=== PATIENT | male | born 1940 | race Caucasian/White ===

== ENCOUNTER 2018-01-17 08:23 | Outpatient (CLI) | payer MEDICARE, OTHER, SELFPAY ==
[2018-01-18 09:54] LABS: PSA, Diagnostic 3.8 ng/ml (0-6.5)
== END 2018-01-17 08:43 ==
PROVIDERS: PCP Family Medicine; Visit Provider Family Medicine
DX: N40.1 Benign prostatic hyperplasia with lower urinary tract symptoms (principal)
CPT/HCPCS: 36415; 84153

== ENCOUNTER 2018-06-17 15:28 | Outpatient (REF) | payer MEDICARE, OTHER, SELFPAY ==
[2018-06-17 22:08] LABS: HCT 40.8 % (40.0-50.0); HGB 14.2 g/dL (13.5-17.5); Mean Corp. HGB Concentration 34.8 g/dL (32.0-36.0); Mean Corpuscular Hemoglobin 32.2 pg (27.0-33.0); Mean Corpuscular Volume 92.5 fL (80-95); Mean Platelet Volume 10.5 fL (8.0-11.0); Platelet Count 200 x1000/uL (130-400); RBC 4.41 m/cumm (4.50-6.00); RBC Distribution Width 12.5 % (11.8-14.1); White Blood Cell Count 5.27 k/cumm (4.4-10.8)
[2018-06-17 22:12] LABS: ALT 40 U/L (12-78); AST 25 U/L (15-37); Alkaline Phosphatase 78 U/L (46-116); Anion Gap 8.7 mmol/L (3-11); BUN 23 mg/dL (7-18); Bilirubin, Total 0.8 mg/dL (0.2-1.0); CO2 29.3 mmol/L (21.0-32.0); CREATININE 0.95 mg/dL (0.70-1.30); Calcium 9.1 mg/dL (8.5-10.1); Chloride 99 mmol/L (98-107); Cholesterol 135 mg/dL (50-200); Glucose 107 mg/dL (70-100); HDL Cholesterol 48 mg/dL (40-60); LDL CHOLESTEROL 74 mg/dL (<100); Potassium 3.9 mmol/L (3.5-5.1); Sodium 137 mmol/L (136-145); Total Protein 6.6 g/dL (6.4-8.2); Triglyceride 99 mg/dL (30-150)
== END 2018-06-17 15:48 ==
LOC: NCHCN 15:28
PROVIDERS: PCP Family Medicine; Visit Provider Specialist/Technologist Athletic Trainer
DX: E11.9 Type 2 diabetes mellitus without complications (principal); I10 Essential (primary) hypertension; E78.5 Hyperlipidemia, unspecified
CPT/HCPCS: 80053; 80061; 83721; 85027

== ENCOUNTER 2020-08-23 18:26 | Outpatient (REF) | payer MEDICARE, OTHER, SELFPAY ==
[2020-08-23 18:47] LABS: HCT 41.7 % (40.0-50.0); HGB 14.7 g/dL (13.5-17.5); MCH 32.2 pg (27.0-33.0); MCHC 35.3 % (32.0-36.0); MCV 91.2 fL (80-95); Platelet Count 223 10^3/uL (130-400); RBC 4.57 10^6/uL (4.36-5.78); RDW 12.6 % (11.8-14.1); RDW-SD 41.6 fL; WBC 6.42 10^3/uL (4.4-10.8)
[2020-08-23 19:04] LABS: ALT 39 U/L (16-63); AST 28 U/L (15-37); Albumin 4.1 g/dL (3.4-5.0); Alkaline Phosphatase 96 U/L (46-116); Anion Gap 9.6 mmol/L (3-11); BUN 26 mg/dL (7-18); Bilirubin, Total 1.3 mg/dL (0.2-1.0); CO2 28.4 mmol/L (21.0-32.0); CREATININE 0.9 mg/dL (0.70-1.30); Calcium 8.9 mg/dL (8.5-10.1); Chloride 97 mmol/L (98-107); Glucose 99 mg/dL (74-106); Potassium 3.5 mmol/L (3.5-5.1); Sodium 135 mmol/L (136-145); Total Protein 6.7 g/dL (6.4-8.2)
[2020-08-23 19:05] LABS: Hemoglobin A1C 6.3 % (<5.7)
== END 2020-08-23 18:27 | disposition home or self-care (01) ==
LOC: NCHCN 18:26
PROVIDERS: PCP Family Medicine; Visit Provider Nurse Practitioner Family
DX: I10 Essential (primary) hypertension (principal); E78.5 Hyperlipidemia, unspecified; R73.09 Other abnormal glucose
CPT/HCPCS: 80053; 85027; 83036

== ENCOUNTER 2021-08-25 10:24 | Outpatient (REF) | payer MEDICARE, OTHER, SELFPAY ==
[2021-08-25 15:20] LABS: Hemoglobin A1C 6.2 % (<5.7)
[2021-08-25 15:22] LABS: Anion Gap 7.3 mmol/L (3-11); BUN 26 mg/dL (7-18); CO2 30.7 mmol/L (21.0-32.0); CREATININE 0.9 mg/dL (0.70-1.30); Calcium 8.7 mg/dL (8.5-10.1); Chloride 96 mmol/L (98-107); Glucose 120 mg/dL (74-106); Potassium 4.1 mmol/L (3.5-5.1); Sodium 134 mmol/L (136-145)
== END 2021-08-25 10:25 | disposition home or self-care (01) ==
LOC: NCHCN 10:24
PROVIDERS: PCP Family Medicine; Visit Provider Nurse Practitioner Family
DX: R73.03 Prediabetes (principal); I10 Essential (primary) hypertension
CPT/HCPCS: 80048; 83036

== ENCOUNTER 2022-08-28 12:31 | Outpatient (REF) | payer MEDICARE, OTHER, SELFPAY ==
[2022-08-28 18:30] LABS: ALT 32 U/L (16-63); AST 24 U/L (15-37); Albumin 4.1 g/dL (3.4-5.0); Alkaline Phosphatase 86 U/L (46-116); Anion Gap 11.1 mmol/L (3-11); BUN 25 mg/dL (7-18); Bilirubin, Total 0.7 mg/dL (0.2-1.0); CO2 26.9 mmol/L (21.0-32.0); CREATININE 0.9 mg/dL (0.70-1.30); Calcium 9.6 mg/dL (8.5-10.1); Chloride 95 mmol/L (98-107); Estimated GFR 86.34 (mL/min/1.73m2); Glucose 110 mg/dL (74-106); Potassium 3.8 mmol/L (3.5-5.1); Sodium 133 mmol/L (136-145); Total Protein 6.7 g/dL (6.4-8.2)
[2022-08-28 19:09] LABS: Hemoglobin A1C 5.9 % (<5.7)
[2022-08-29 19:50] LABS: PSA, Screening 8.5 ng/mL (<=6.5)
== END 2022-08-28 12:32 | disposition home or self-care (01) ==
LOC: NCHCN 12:31
PROVIDERS: PCP Family Medicine; Visit Provider Nurse Practitioner Family
DX: R97.20 Elevated prostate specific antigen [PSA] (principal); R73.03 Prediabetes; Z12.5 Encounter for screening for malignant neoplasm of prostate
CPT/HCPCS: 80053; 84153; 83036

== ENCOUNTER 2022-09-12 09:43 | Outpatient (REF) | payer MEDICARE, OTHER, SELFPAY ==
[2022-09-12 20:00] LABS: Anion Gap 5.5 mmol/L (3-11); BUN 25 mg/dL (7-18); CO2 30.5 mmol/L (21.0-32.0); CREATININE 0.9 mg/dL (0.70-1.30); Calcium 8.7 mg/dL (8.5-10.1); Chloride 102 mmol/L (98-107); Estimated GFR 86.34 (mL/min/1.73m2); Glucose 120 mg/dL (74-106); Potassium 4.8 mmol/L (3.5-5.1); Sodium 138 mmol/L (136-145)
== END 2022-09-12 09:44 | disposition home or self-care (01) ==
LOC: NCHCN 09:43
PROVIDERS: PCP Family Medicine; Visit Provider Nurse Practitioner Family
DX: E87.1 Hypo-osmolality and hyponatremia (principal)
CPT/HCPCS: 80048

== ENCOUNTER 2023-09-03 09:41 | Outpatient (REF) | payer MEDICARE, OTHER, SELFPAY ==
[2023-09-03 16:10] LABS: Hemoglobin A1C 5.9 % (<5.7)
[2023-09-03 16:35] LABS: ALT 30 U/L (16-63); AST 21 U/L (15-37); Albumin 3.9 g/dL (3.4-5.0); Alkaline Phosphatase 84 U/L (46-116); Anion Gap 7.5 mmol/L (3-11); BUN 21 mg/dL (7-18); Bilirubin, Total 0.4 mg/dL (0.2-1.0); CO2 27.5 mmol/L (21.0-32.0); CREATININE 0.9 mg/dL (0.70-1.30); Calcium 8.7 mg/dL (8.5-10.1); Chloride 103 mmol/L (98-107); Glucose 115 mg/dL (74-106); Magnesium 2.2 mg/dL (1.8-2.4); Potassium 5.2 mmol/L (3.5-5.1); Sodium 138 mmol/L (136-145); Total Protein 6.9 g/dL (6.4-8.2)
[2023-09-03 23:15] LABS: PSA, Diagnostic 15.2 ng/mL (<=6.5)
== END 2023-09-03 09:42 | disposition home or self-care (01) ==
LOC: NCHCN 09:41
PROVIDERS: PCP Family Medicine; Visit Provider Nurse Practitioner Family
DX: Z00.00 Encounter for general adult medical examination without abnormal findings (principal); R97.20 Elevated prostate specific antigen [PSA]; I10 Essential (primary) hypertension; R73.03 Prediabetes
CPT/HCPCS: 80053; 82306; 83036; 83735; 84153

== ENCOUNTER 2023-10-05 14:51 | Outpatient (REF) | payer MEDICARE, OTHER, SELFPAY ==
--- OUTSIDE RECORDS SUMMARY | 2023-10-05 14:57 | XMS_ITS | Encounter Summary ---
Author Organization [facility] Address [address] [place] [address] Care Team Providers Care Energy And Sustainability Manager Name Role Phone Unavailable Primary Care Provider Unavailabl e Encounter Details Date Type Department Care Team (Latest Contact Info) Description 06/13/2000 18:26 EST Hospital Encounter [facility] Emergency Department - [facility] [address] [place] [address] Emergency, Default, MD Discharge Disposition: Home or Self Care Social History Tobacco Use Types Packs/Day Years Used Date Smoking Tobacco: Never Assessed Sex and Gender Information Value Date Recorded Sex Assigned at Not on file Gender Identity Not on file Sexual Orientation Not on file documented as of this encounter Discharge Disposition Disposition Code Departure Means Destination Home or Self Care documented in this encounter Plan of Treatment Not on file documented as of this encounter Visit Diagnoses Not on filedocumented in this encounter
--- OUTSIDE RECORDS SUMMARY | 2023-10-05 14:57 | XMS_ITS | Clinical Summary ---
Author Organization [facility] Address [address] [place] [address] Care Team Providers Care Agricultural Loan Officer Name Role Phone None, Provider Primary Care Provider Unavailabl e Allergies No known active allergies Medications Medication Sig Dispensed Refills Start Date End Date Status aspirin 325 mg tablet Take 325 mg by mouth daily. Active lisinopril (PRINIVIL, ZESTRIL) 20 mg tablet Take 20 mg by mouth daily. Active nitroGLYCERIN (NITROSTAT) 0.[address] 0.4 mg under the tongue every 5 minutes as needed. Active hydrochlorothiazide (MICROZIDE) 12.5 mg capsule Take 12.5 mg by mouth daily. Active atorvastatin (LIPITOR) 80 mg tablet Take 1 Tab by mouth daily. 90 Tab 4 12/14/2010 Active ezetimibe (ZETIA) 10 mg tablet Take 1 Tab by mouth daily. 90 Tab 4 12/14/2010 Active atenolol (TENORMIN) 25 mg tablet Take 1 Tab by mouth daily. 90 Tab 4 12/14/2010 Active chlorthalidone (HYGROTON) 25 mg tablet Take 25 mg by mouth daily. 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 Hyperlipidemia 12/14/2009 Hypertensive disorder 12/14/2009 Encounters Date Type Department Care Team Description 09/03/2023 Lab Requisition [facility] Pathology & Laboratory Medicine - [facility] [address] [place] [address] Outr Resulting Lab, Provider from Last 3 Months Surgical History Surgery Date Site/Laterality Comments VASECTOMY TONSILLECTOMY AND ADENOIDECTOMY Family History Medical History Relation Comments Heart Disease Mother CABG Relation Status Comments Mother Social History Tobacco Use Types Packs/Day Years Used Date Smoking Tobacco: Never Smokeless Tobacco: Never Alcohol Use Standard Drinks/Week Comments Yes 4.5 (1 standard drink = 0.6 oz p ure alcohol) Interpersonal Safety Answer Date Record ed Physically Hurt Never 10/19/2019 Verbally Threaten Not on file 10/19/2019 Sex and Gender Information Value Date Recorded Sex Assigned at Not on file Gender Identity Not on file Sexual Orientation Not on file Obstetrics History Last Filed Vital Signs Vital Sign Reading Time Taken Comments Blood Pressure 124/68 08/28/2012 1323 EDT Pulse 56 08/28/2012 1323 EDT Temperature - - Respiratory Rate - - Oxygen Saturation - - Inhaled Oxygen Concentration - - Weight 68.5 kg (151 lb) 08/28/2012 1323 EDT Height 170.2 cm (5' 7) 08/28/2012 1323 EDT Body Mass Index 23.65 08/28/2012 1323 EDT Plan of Treatment Health Maintenance Due Date Last Done Comments Social Determinants Of Health (SDOH) 1942 Lipid Profile Screening (Cholesterol) 1945 Depression Screening 1954 Advance Directive 1960 Preventive Care Visit 1960 Pertussis (Adult) Immunization 1961 Tetanus (Adult) Immunization 1961 Shingles Immunization (1 of 2) 1992 RSV Immunization ( o r 60+ Years) (1 - 1-dose 60+ series) 2002 Fall Risk Screening 05/26/2007 Pneumococcal Immunization (65+) (1 of 1 - PCV) 008 COVID-19 Vaccine (1 - 2022-24 season) 2022 Influenza Immunization (Adult) (#1) 2023 Procedures Procedure Name Priority Date/Time Associated Diagnosis Comments PSA TOTAL, DIAGNOSTIC Routine 09/03/2023 8:40 EDT from Last 3 Months Results * (ABNORMAL) PSA TOTAL, DIAGNOSTIC (09/03/2023 8:40 EDT) PSA 15.2(H) <=6.5 ng/mL 09/03/2023 23:10 EDT [facility] Blood VENOUS BLOOD / Unknown 09/03/2023 8:40 EDT 09/03/2023 22:06 EDT Narrative [facility] - 09/03/2023 23:10 EDT NOTE: Serum PSA concentration should not be interpreted as absolute evidence for the presence or absence of malignant disease. Assayed on Siem[employer] XPT using chemiluminescent technology.??Values obtained by using different assay methods cannot be used interchangeably. Provider Outr Resulting Lab CHEMISTRY & BLOOD GAS ORDERABLES [facility] [address], [place] [id number] from Last 3 Months Care Teams Agricultural Loan Officer Relationship Specialty Start Date End Date None, Provider PCP - General 06/11/19
--- OUTSIDE RECORDS SUMMARY | 2023-10-05 14:57 | XMS_ITS | Encounter Summary ---
Author Organization [facility] Address [address] [place] [address] Care Team Providers Care Tobacco Cloth Reclaimer Name Role Phone Guero Aragon MD Primary Care Provider [phone] Encounter Details Date Type Department Care Team (Latest Contact Info) Description 11/15/2018 15:46 EDT - 11/15/2018 23:59 EDT Hospital Encounter [facility] - [address] [address] Unknown, Provider, Discharge Disposition: Home or Self Care Social History Tobacco Use Types Packs/Day Years Used Date Smoking Tobacco: Never Smokeless Tobacco: Never Alcohol Use Standard Drinks/Week Comments Yes 4.5 (1 standard drink = 0.6 oz p ure alcohol) Sex and Gender Information Value Date Recorded Sex Assigned at Not on file Gender Identity Not on file Sexual Orientation Not on file documented as of this encounter Medications at Time of Discharge Medication Sig Dispensed Refills Start Date End Date aspirin 325 mg tablet Take 325 mg by mouth daily. atenolol (TENORMIN) 25 mg tablet Take 1 Tab by mouth daily. 90 Tab 4 12/14/2010 atorvastatin (LIPITOR) 80 mg tablet Take 1 Tab by mouth daily. 90 Tab 4 12/14/2010 chlorthalidone (HYGROTON) 25 mg tablet Take 25 mg by mouth daily. ezetimibe (ZETIA) 10 mg tablet Take 1 Tab by mouth daily. 90 Tab 4 12/14/2010 hydrochlorothiazide (MICROZIDE) 12.5 mg capsule Take 12.5 mg by mouth daily. lisinopril (PRINIVIL, ZESTRIL) 20 mg tablet Take 20 mg by mouth daily. nitroGLYCERIN (NITROSTAT) 0.[address] 0.4 mg under the tongue every 5 minutes as needed. documented as of this encounter Discharge Disposition Disposition Code Departure Means Destination Home or Self Group Home documented in this encounter Plan of Treatment Not on file documented as of this encounter Visit Diagnoses Not on filedocumented in this encounter Care Teams Tobacco Cloth Reclaimer Relationship Specialty Start Date End Date Guero Aragon MD [address] [place] [phone] PCP - General 12/13/10 06/10/19 documented as of this encounter
--- OUTSIDE RECORDS SUMMARY | 2023-10-05 14:57 | XMS_ITS | Encounter Summary ---
Author Organization [facility] Address [address] [place] [address] Care Team Providers Care Liquor Store Manager Name Role Phone None, Provider Primary Care Provider Unavailabl e Encounter Details Date Type Department Care Team (Late st Contact Info) Description 09/03/2023 Lab Requisition [facility] Pathology & Laboratory Medicine - [facility] [address] [place] [address] Outr Resulting Lab, Provider Social History Tobacco Use Types Packs/Day Years [...] on file documented as of this encounter Plan of Treatment Not on file documented as of this encounter Procedures Procedure Name Priority Date/Time Associated Diagnosis Comments PSA TOTAL, DIAGNOSTIC Routine 09/03/2023 8:40 EDT documented in this encounter Results * (ABNORMAL) PSA TOTAL, DIAGNOSTIC (09/03/2023 8:40 EDT) PSA 15.2(H) <=6.5 ng/mL 09/03/2023 23:10 EDT [facility] Blood VENOUS BLOOD / Unknown 09/03/2023 8:40 EDT 09/03/2023 22:06 EDT Narrative [facility] - 09/03/2023 23:10 EDT NOTE: Serum PSA concentration should not be interpreted as absolute evidence for the presence or absence of malignant disease. Assayed on Siemens [employer] XPT using chemiluminescent technology.??Values obtained by using different assay methods cannot be used interchangeably. Provider Outr Resulting Lab CHEMISTRY & BLOOD GAS ORDERABLES [facility] [address] [place] [phone] documented in this encounter Visit Diagnoses Not on filedocumented in this encounter Care Teams Liquor Store Manager Relationship Specialty Start Date End Date None, Provider PCP - General 06/11/19 documented as of this encounter
--- OUTSIDE RECORDS SUMMARY | 2023-10-05 14:57 | XMS_ITS | Continuity of Care Document ---
Author Organization [facility] Address [address] [place] [address] Care Team Providers Care Emergency Medcl Emt Name Role Phone [facility] Clerk [phone] JERROD QUIGLEY Housekeeping Worker [facility] Dentist [phone] 3 Assessment No assessment recorded. Plan of Treatment Reminders Order Date Submit Date Provider Last Modified By Organization Details Last Modified Time Details Appointments Nurse Visit 20 2023 11:30A M [facility] Nursing Staff Not available Not available Not available Medicare Annual Wellness 40 2024 07:30A M Darlin Hoff Not available Not available Not available Lab BMP, serum or plasma 2023 024 [facility] (Registration ), [address] [place] [address] [place], [address], 10/05/2023 12:15:27 Referral None recorded. Procedures None recorded. Surgeries None recorded. Imaging None recorded. Medication Orders None recorded. Patient TargetsNo targets recorded. Patient InstructionsNo instructions recorded. Reason for Referral Orthopedic Surgeon Referral for Pain of left shoulder region Referring Physician: Darlin Gallegos, Family Medicine, Encounter Date: 09/03/2023 Results Created Date Observation Date Name Description Value Unit Range Abnormal Flag LastModifiedBy Organization Detail LastModifiedTime 09/14/19 24 09/14/2023 MRI, shoul siva, w/o contr ast No observ ation record ed. [address], [place], [address], 10/02/2023 10:54:03 Result Notes None recorded. Problems Name Status Onset Date Resolution Date Notes Provider Name and Address Organization Details Recorded Time History of vasectomy Active 2017 Problem Code: Z98.52; Problem Code Type: ICD-10; Not Available [facility] 3 05:18:21 Essential hypertension Active 201408/25/2021 - Comments only - Darlin Gallegos [facility]- - - He wasn unsure if he is taking two or three antihypertens vivien currently - He will bring in his med list for reconciliatio n - His bp is under excellent control, without hypotensive episodes, chest pain, cough, or fatigue - I may consider decreasing or stopping one medication, as his blood pressure is below goal, however he denies any lightheadedne ss, and his fll risk is very low. 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 - Continue same. We can consider LFTs next year - these have been wnl, last checked 08/2020 Problem Code: E78.5; Problem Code Type: ICD-10; Not Available [facility] 3 05:18:21 Inguinal hernia Active 2016 Problem Code: K40.90; Problem Code Type: ICD-10; Not Available [facility] 3 05:18:21 Intestinal obstruction Active 2017 Problem Code: K56.609; Problem Code Type: ICD-10; Not Available [facility] 3 05:18:21 Venous thrombosis Active 2017 Problem Code: K64.5; Problem Code Type: ICD-10; Not Available [facility] 3 05:18:21 Erectile dysfunction Active 2017 Problem Code: N52.9; Problem Code Type: ICD-10; Not Available [facility] 3 05:18:21 Benign neoplasm of sigmoid colon Active Problem Code: D12.5; Problem Code Type: ICD-10; Not Available [facility] 3 05:18:21 Hydrocele of testis Active Problem Code: N43.3; Problem Code Type: ICD-10; Not Available [facility] 3 05:18:21 Rupture of rotator cuff of right shoulder Active 11/29/2020 - Improved - Shereen Sanchez - Problem Code: M75.101; Problem Code Type: ICD-10; Not Available [facility] 3 05:18:22 Lower urinary tract symptoms due to benign prostatic hypertrophy Active 201612/16/2019 - Comments only - Darlin Gallegos [employer] - Per Dr Shaikh 11/26/19, good symptomatic control with tamsulosin 0.4mg qhs, f/u 1 year with pre-clinic PSA. PSA ordered by Dr Shaikh for 11/25/2020 Problem Code: N40.1; Problem Code Type: ICD-10; Not Available [facility] 3 05:18:22 Actinic keratosis Active 201605/15/2019 - Comments only - Darlin Gallegos [employer] - Multiple lesions on sun-exposed areas, consistent with actinic keratoses. Will refer to dermatology for full body exam and to discuss treatment options and prevention measures. Did discuss importance of wearing sunscreen, hat, protective clothing. Problem Code: L57.0; Problem Code Type: ICD-10; Not Available [facility] 3 05:18:22 Prediabetes Active 201808/25/2021 - Comments only - Darlin Gallegos [employer] - - Serum A1c drawn today for monitoring Problem Code: R73.03; Problem Code Type: ICD-10; Not Available [facility] 3 05:18:22 Eczema Active 201810/08/2020 - Comments only - Darlin Gallegos [employer] - - Will refer to Dr Quigley for evaluation of this nonhealing lesion - Meanwhile he will continue to apply Aquaphor to the area to prevent cracking or peeling. Problem Code: L30.8; Problem Code Type: ICD-10; Not Available [facility] 3 05:18:22 Melanocytic nevus Active 201905/15/2019 - Comments only - Darlin SemajanujasheritaPark [employer] - Growing mole, <6mm in diameter. Will have dermatology take a look at it when seen for actinic keratoses. Problem Code: D22.9; Problem Code Type: ICD-10; Not Available [facility] 3 05:18:22 Adult health examination Active 201908/30/2022 - Comments only - Darlinarben ChaRalph [employer] - - A1c, CMP drawn today - Follow up in 1 year, sooner prn Problem Code: Z00.00; Problem Code Type: ICD-10; Not Available [facility] 3 05:18:22 Heart murmur Active 201908/18/2019 - Comments only - Darlin ChaanujatjLuis Eduardo [employer] - - Pt states has been there for years, is asymptomatic - Has had full cardiac workup Problem Code: R01.1; Problem Code Type: ICD-10; Not Available [facility] 3 05:18:22 Cataract Active 201908/18/2019 - Comments only - Darlin ChaanujatjLuis Eduardo [employer] - - Keep appointment at [facility] Problem Code: H26.9; Problem Code Type: ICD-10; Not Available [facility] 3 05:18:23 Spontaneous rupture of flexor tendons Active 2020 Problem Code: M66.369; Problem Code Type: ICD-10; Not Available [facility] 3 05:18:23 Impacted cerumen in left ear Active 202108/25/2021 - Improved - Darlin Chaanujasherita-Luis Eduardo [employer] - - He was able to remove significant amount of cerumen from his L ear over the past 2 weeks, after applying oil to his ear for several nights. He tolerated this well, and self-flushed at home, removing a large amount of cerumen. Hes ear canals look excellent today, and he is hearing well. - He will plan to monitor his hearing/ear fullness, and use this method if/when he feels wax building up - I have encouraged him to call our office any time if he wants to have his ears checked or flushed here. Problem Code: H61.22; Problem Code Type: ICD-10; Not Available [facility] 3 05:18:23 Gastroesophag eal reflux disease without esophagitis Active 202108/25/2021 - Comments only - Darlin Gallegos [employer] - - Under excellent control since starting omeprazole 20mg po qd - He may try decreasing to qod, and continue on that if his symptoms are adequately controlled. Otherwise, OK to continue on daily dosing. - Also reviewed lifestyle measures Problem Code: K21.9; Problem Code Type: ICD-10; Not Available [facility] 3 05:18:23 Malignant melanoma of skin Active 202211/06/2022 - Comments only - Darlin FAGANP-BC - F/U Dr Quigley 11/06/22: Patient assured about his benign skin examination. Continue our every 6 month follow-ups for 2 years then once yearly thereafter. Problem Code: C43.9; Problem Code Type: ICD-10; Not Available [facility] 3 05:18:23 Prostate specific antigen above reference range Active 202208/30/2022 - Comments only - Darlin Gallegos [employer] - - PSA drawn today, will send result to Dr Shaikh Problem Code: R97.20; Problem Code Type: ICD-10; Not Available [facility] 3 05:18:23 Xerostomia Active 202208/30/2022 - Comments only - Darlin Gallegos [employer] - - Suggest Biotene or similar mouthwash/spr ay, hydration - He is not overly bothered by this Problem Code: R68.2; Problem Code Type: ICD-10; Not Available [facility] 3 05:18:23 Hypo-osmolali ty and or hyponatremia Active 06/15/ 2023 Problem Code: E87.1; Problem Code Type: ICD-10; Not Available [facility] 3 05:18:23 Radial styloid tenosynovitis Completed Problem Code: M65.4; Problem Code Type: ICD-10; Not Available [facility] 3 05:18:24 Pre-surgery evaluation Completed 202011/29/2020 Problem Code: Z01.818; Problem Code Type: ICD-10; Not Available [facility] 3 05:18:24 Type 2 diabetes mellitus without complication Completed 201408/18/2019 Problem Code: E11.9; Problem Code Type: ICD-10; Not Available [facility] 3 05:18:24 Pain of left shoulder region Active 2023 DARLIN ISBELL, [facility] [address], [place], [address] , [facility] 4 08:09:59 Potassium level - finding Active 2023 DARLIN ISBELL [facility] [address], [place], [address] , [facility] 4 13:58:13 Problem Notes None recorded. Medical Equipment None Reported. Allergies Allergen ID Allergen Name Allergen Category Reaction Reaction Severity Criticality Documentation Date Start Date Code Code System Note Provider Name and Address Organization Details Recorded Time 00638 Viagra medicatio n nausea moderate Not available 01/26/20232017 81470 5 RxNorm nause a, heada sully Aller gyRea ction : 'naus ea, heada sully'; Not Available [facility] 3 16:21:55 Medications Name Sig Start Date Stop Date Status Note LastModified by Organization Details LastModified Time atorvastati n 80 mg tablet TAKE ONE TABLET BY MOUTH EVERY EVENING active Not Available Not Available No t Available Lotrisone 1 %-0.05 % topical cream Apply thin layer around lips, BID, PRN. 08/17 completed Not Available Not Available Not Available lisinopril 20 mg tablet TAKE ONE TABLET BY MOUTH EVERY DAY active Not Available Not Available No t Available chlorthalid one 25 mg tablet 1 tab daily active Not Available Not Available No t Available aspirin 325 mg tablet,kerrie yed release 1 daily 2017 active Not Available Not Available Not Avai lable tamsulosin 0.4 mg capsule TAKE TWO CAPSULES BY MOUTH EVERY EVENING active Not Available Not Available No t Available nitroglycer in 0.[address] by sublingua l route. 09/02 completed Not Available Not Available Not Available omeprazole 20 mg capsule,del ayed release TAKE ONE CAPSULE BY MOUTH EVERY DAY active Not Available Not Available No t Available metoprolol succinate ER 25 mg tablet,exte nded release 24 hr TAKE ONE TABLET BY MOUTH EVERY DAY active Not Available Not Available No t Available Aspir-81 mg tablet,kerrie yed release Take 1 tab by mouth daily 2017 active Not Available Not Available Not Avai lable doxycycline hyclate 100 mg tablet Take 2 tabs po X 1 now 06/14 completed Not Available Not Available Not Available finasteride 5 mg tablet TAKE ONE TABLET BY MOUTH EVERY DAY active Not Available Not Available No t Available apple cider vinegar 500 mg tablet take 2 daily active Not Available Not Available No t Available Vitals None Recorded Social History Question Answer Notes LastModified by Organizat ion Details LastModified Time Tobacco Smoking Status Never Smoker Lazara Tidwell LPN null, [place] - [facility]. 08/31/2023 07:50:39 Do You Have An Advance Directive? Yes [email or web address] Information n ot available 08/31/2023 What Is Your Code Status? Full Code [email or web address] Information not available 08/31/2023 Date Of Most Recent HSA 09/03/2023 [email or web address] Information not available 08/31/2023 Would You Say That, In General, Your Health Is Very Good bmnwldonnos00 Information not available 08/31/2023 How Often Does Anyone, Including Family, Physically Hurt You? Never cfhlapttlqd33 Information not available 08/31/2023 How Often Does Anyone, Including Family, Insult Or Talk Down To You? Never dujogjnyfgg64 Information no t available 08/31/2023 How Often Does Anyone, Including Family, Threaten You With Harm? Never onvppihvzob72 Information not available 08/31/2023 How Often Does Anyone, Including Family, Scream Or Curse At You? Never bctvwftrbye70 Information not available 08/31/2023 Within The Past 12 Months, You Worried That Your Food Would Run Out Before You Got Money To Buy More. Never True kqhifcnoqjg58 Information n ot available 08/31/2023 Within The Past 12 Months, The Food You Bought Just Didn't Last And You Didn't Have Money To Get More. Never True xelxmgdcfqh43 Information n ot available 08/31/2023 How Hard Is It For You To Pay For The Very Basics Like Food, Housing, Medical Care, And Heating? Would You Say It Is: Not Hard At All blsayxnjkqk81 Information not available 08/31/2023 In The Past 12 Months, Has Lack Of Reliable Transportation Kept You From Medical Appointments, Meetings, Work Or From Getting Things Needed For Daily Living? No rpvugyermyg15 Information not available 08/31/2023 What Is Your Housing Situation Today? I Have Housing. vxnudiitjah90 Information not available 08/31/2023 How Often In The Past Year Have You Used Marijuana (including Smoking, Vaping, Dabbing, Or Edibles)? Never nokpukyjajw78 Information not available 08/31/2023 How Often In The Past Year Have You Used Prescription Medications That Were Not Prescribed To You? Never yjfuupigagx06 Information n ot available 08/31/2023 How Often In The Past Year Have You Taken Your Own Prescription Medication More Than The Way It Was Prescribed Or For Different Reasons Than Its Intended Purpose? Never pplmknewodq18 Information no t available 08/31/2023 How Often In The Past Year Have You Used Other Drugs (for Example, Heroin, Cocaine, Meth, Salvia, Inhalants)? Never daivjqigtbh55 Information not available 08/31/2023 Have You Ever Used IV Drugs? No nbvfceuxfvm31 Information not available 08/31/2023 During The Past Four Weeks Has Your Physical And Emotional Health Limited Your Social Activities With Family And Friends, Neighbors, Or Groups? Not At All bagfnhgzchk98 Information not available 08/31/2023 During The Past Four Weeks, Was Someone Available To Help You If You Needed And Wanted Help? (For Example, If You [place] Very Nervous, Lonely, Or Blue; Got Sick And Had To Stay In Bed; Needed Someone To Talk To; Needed Help With Daily Chores; Or Needed Help Just Taking Care Of Yourself.) Yes- As Much As I Wanted kztkvognswc11 Information not available 08/31/2023 During The Past Four Weeks, What Was The Hardest Physical Activity You Could Do For At Least 2 Minutes? Heavy xfzverjwwkg52 Information not available 08/31/2023 Can You Get To Places Out Of Walking Distance Without Help? (For Example, Can You Travel Alone On Buses Or Taxis, Or Drive Your Own Car?) Yes vmisxmvvmwn97 Information not available 08/31/2023 Can You Go Shopping For Groceries Or Clothes Without Someone? s Help? Yes wjmqeuyryqf97 Information not available 08/31/2023 Can You Prepare Your Own Meals? Yes qjwxflcquhd62 Information not available 08/31/2023 Can You Do Your Housework Without Help? Yes hnnnuuskgsd90 Information not available 08/31/2023 Because Of Any Health Problems, Do You Need The Help Of Another Person With Your Personal Care Needs Such As Eating, Bathing, Dressing, Or Getting Around The House? No djqonslybyv71 Information not available 08/31/2023 Can You Handle Your Own Money Without Help? Yes ifinnfeayus46 Information not available 08/31/2023 Are You Having Difficulties Driving Your Car? No sdusndrbrzs07 Information no t available 08/31/2023 Do You Always Fasten Your Seat Belt When You Are In A Car? Yes- Usually jkfgaehgdka91 Information not available 08/31/2023 How Often During The Past Four Weeks Have You Been Bothered By Any Of The Following Problems? Falling Or Dizzy When Standing Up? Never Information not available 08/31/2023 Sexual Problems? Never gdkvgwiqdcd01 Infor mation not available 08/31/2023 Trouble Eating Well? Never fyezizdpani59 Information not available 08/31/2023 Teeth Or Denture Problems? Never lbvdvhngywm97 Information not available 08/31/2023 Problems Using The Telephone? Never ubjviaemuhm37 Information not available 08/31/2023 Tiredness Or Fatigue? Never syltwqqcgmv25 Information not available 08/31/2023 Have You Had 2 Or More Falls Or Sustained An Injury With A Fall In The Last Year? No ehytccbpajb30 Information no t available 08/31/2023 Do You Have Difficulty With Walking Or Balance? No byxxnkmmeni85 Information not available 08/31/2023 Do You Currently Use A Hearing Device? No jxldnnggzei19 Information not available 08/31/2023 Do You Currently Have Any Trouble With Your Vision? No rimbhbwbetc32 Information no t available 08/31/2023 Do You Exercise For About 20 Minutes Three Or More Days A Week? No- I Usually Do Not Exercise Much zyvnjhkauee31 Information not available 08/31/2023 Are There Any Safety Concerns In Your Home (see Attached [facility] Pamphlet)? No kkbrbcnyhkn89 Information not available 08/31/2023 How Often Do You Have Trouble Taking Medicines The Way You Have Been Told To Take Them? I Always Take Them As Prescribed twfziourtit78 Information not available 08/31/2023 How Confident Are You That You Can Control And Manage Most Of Your Health Problems? Very Confident ogwbgzceccd30 Information not available 08/31/2023 Do You Currently Have Any Difficulty With Your Hearing? No msvoncfpyqw22 Information not available 08/31/2023 Date Of Most Recent SBINS 09/03/2023 [email or web address] Information not available 08/31/2023 Do You Have A Medical Power Of Leather Fitter? Yes lodzbbgnhou18 Information not available 08/31/2023 What Was The Date Of Your Most Recent Tobacco Screening? 09/03/2023 bikczdzfejs98 Information not available 08/31/2023 Has Tobacco Cessation Counseling Been Provided? Yes qwliofsjbph67 Information not available 08/31/2023 Do You Or Have You Ever Used Any Other Forms Of Tobacco Or Nicotine? No ytyrxytfkwt93 Information not available 08/31/2023 Sex: Male Functional Status None recorded. Mental Status None recorded. Family History Relationship Description Onset Age of this Age Resolved Age Notes Father Family history of kidney disease ; kidney failure, heart disease unspec Father Family history of heart failure ; kidney failure, heart disease unspec Mother Family history of diabetes mellitus type 1 ; unspec diabetes Unspecified Relation Family history of diabetes mellitus type 1 siblings: unspec diabetes Notes:*Problem: Father at 65 from heart attack, Renal dz Mother, 2 sisters DM ( ) Brother- A&w prostate issues Medical History No medical history recorded. Immunizations Vaccine Type Date Status Provider Name and Address Organization Details Recorded Time Tdap 09/02/2012 completed Not Available [facility] 06:19:41 Pneumococcal conjugate PCV 13 06/17/2018 completed Not Available [facility] 01/26/2023 06:19:42 Td(adult) unspecified formulation 06/15/2002 completed Not Available [facility] 01/26/2023 06:19:42 Td(adult) unspecified formulation 06/19/2016 completed Not Available [facility] 01/26/2023 06:19:42 zoster recombinant 07/03/[address] [facility] 01/26/2023 06:19:42 zoster recombinant 09/17/[address] [facility] 01/26/2023 06:19:42 Influenza, high-dose, quadrivalent, PF 12/28/2020 completed Not Available [facility] 01/26/2023 06:19:42 Influenza, high-dose, quadrivalent, PF 01/17/2022 completed Not Available [facility] 01/26/2023 06:19:42 Influenza, high-dose, quadrivalent, PF 01/19/2020 completed Not Available [facility] 01/26/2023 06:19:42 COVID-19, mRNA, LNP-S, PF, 100 mcg/0.5mL dose or 50 mcg/0.25mL dose 04/21/2020 completed Not Available [facility] 01/26/2023 06:19:42 COVID-19, mRNA, LNP-S, PF, 100 mcg/0.5mL dose or 50 mcg/0.25mL dose 05/19/2020 completed Not Available [facility] 01/26/2023 06:19:42 COVID-19, mRNA, LNP-S, PF, 100 mcg/0.5mL dose or 50 mcg/0.25mL dose 08/11/2021 completed Not Available [facility] 01/26/2023 06:19:42 COVID-19, mRNA, LNP-S, PF, 100 mcg/0.5mL dose or 50 mcg/0.25mL dose 01/12/2021 completed Not Available [facility] 01/26/2023 06:19:43 COVID-19, mRNA, LNP-S, bivalent, PF, 30 mcg/0.3 mL dose 08/28/2022 completed Not Available [facility] 01/27/20 06:19:43 COVID-19, mRNA, LNP-S, bivalent, PF, 30 mcg/0.3 mL dose 01/17/2022 completed Not Available [facility] 01/27/20 06:19:43 pneumococcal polysaccharide PPV23 08/18/2019 completed [facility] 2022 06:19:43 Influenza, high-dose, quadrivalent, PF 01/11/2023 completed Not Available [facility] 03/30/2023 05:31:19 COVID-19, mRNA, LNP-S, PF, irineo-sucrose, 30 mcg/0.3 mL 01/11/2023 completed Not Available [facility] 03/30/2023 05:31:19 Past Encounters Encounter ID Performer Location Encounter Start Date Encounter Closed Date Diagnosis/Indication Diagnosis SNOMED-CT Code [id number] [address] [address] 10/05/2023 12:04:00 10/05/2023 12:39:23 Hypokalemia [id number] Health Concerns Section Related Observation LastModified by Organization Detai ls LastModified Time None Recorded Concern Status LastModified by Organization Details LastModified Time None Recorded Payers Encounter Date Sequence Insurance Name Policy Number Policy Coats Covered Member ID Coats Member ID Guarantor Name 10/05/2023 2 [employer] - [employer]URANCE (MEDICARE SUPPLEMENT) [place] [id number] [place] 10/05/2023 1 [place] [id number] [place]
--- OUTSIDE RECORDS SUMMARY | 2023-10-05 14:57 | XMS_ITS | Referral Summary ---
Author Organization [facility] Address [address] [place] [address] Care Team Providers Care Milk Receiver Name Role Phone None, Provider Primary Care Provider Unavailabl e Encounters Date Type Department Care Team Description 09/03/2023 Lab Requisition [facility] - [facility] [address] [place] [address] Outr Resulting Lab, Provider from Last 3 Months Allergies No known active allergies Medications Medication [...] 12/14/2009 Overview: A. 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 Hyperlipidemia 12/14/2009 Hypertensive disorder 12/14/2009 Social History Tobacco Use Types Packs/Day Years [...] on file Sexual Orientation Not on file Last Filed Vital Signs Vital Sign Reading Time Taken Comments Blood Pressure 124/68 08/28/2012 1323 EDT Pulse 56 08/28/2012 1323 EDT Temperature - - Respiratory Rate - - Oxygen Saturation - - Inhaled Oxygen Concentration - - Weight 68.5 kg (151 lb) 08/28/2012 1323 EDT Height 170.2 cm (5' 7) 08/28/2012 1323 EDT Body Mass Index 23.65 08/28/2012 1323 EDT Plan of Treatment Not on file Procedures Procedure Name Priority Date/Time Associated Diagnosis Comments PSA TOTAL, DIAGNOSTIC Routine 09/03/2023 8:40 EDT from Last 3 Months Results * (ABNORMAL) PSA TOTAL, DIAGNOSTIC (09/03/2023 8:40 EDT) PSA 15.2(H) <=6.5 ng/mL 09/03/2023 23:10 EDT [facility] Blood VENOUS BLOOD / Unknown 09/03/2023 8:40 EDT 09/03/2023 22:06 EDT Narrative [facility] - 09/03/2023 23:10 EDT NOTE: Serum PSA concentration should not be interpreted as absolute evidence for the presence or absence of malignant disease. Assayed on Siemens ADVIA Centaur XPT using chemiluminescent technology.??Values obtained by using different assay methods cannot be used interchangeably. Provider Outr Resulting Lab CHEMISTRY & BLOOD GAS ORDERABLES [facility] [address], [place] [address] from Last 3 Months Care Teams Milk Receiver Relationship Specialty Start Date End Date None, Provider PCP - General 06/11/19
--- OUTSIDE RECORDS SUMMARY | 2023-10-05 14:57 | XMS_ITS | Encounter Summary ---
Author Organization [facility] Address [address] [place] [address] Care Team Providers Care Hand I Tube Bender Name Role Phone Guero Aragon MD Primary Care Provider [phone] Reason for Visit * Reason Comments Other Coronary atheroscler osis Encounter Details Date Type Department Care Team (Latest Contact Info) Description 08/28/2012 13:45 EDT Office Visit [facility] - [address] [address] Obinna Roe MD [address] [facility] [address] [place] [address] Coronary atherosclerosis (Primary Dx); Hyperlipidemia; Hypertension Discharge Disposition: Auto Discharge Social History Tobacco Use Types Packs/Day Years Used Date Smoking Tobacco: Never Smokeless Tobacco: Never Alcohol Use Standard Drinks/Week Comments Yes 4.5 (1 standard drink = 0.6 oz p ure alcohol) Sex and Gender Information Value Date Recorded Sex Assigned at Not on file Gender Identity Not on file Sexual Orientation Not on file documented as of this encounter Last Filed Vital Signs Vital Sign Reading Time Taken Comments Blood Pressure 124/68 08/28/2012 1323 EDT Pulse 56 08/28/2012 1323 EDT Temperature - - Respiratory Rate - - Oxygen Saturation - - Inhaled Oxygen Concentration - - Weight 68.5 kg (151 lb) 08/28/2012 1323 EDT Height 170.2 cm (5' 7) 08/28/2012 1323 EDT Body Mass Index 23.65 08/28/2012 1323 EDT documented in this encounter Discharge Disposition Disposition Code Departure Means Destination Auto Discharge documented in this encounter Progress Notes * Obinna Roe MD - 08/28/2012 7346 EDT Subjective: Patient ID: Gurpreet Ballesteros Jr. is an 72 y.o. male. Chief Complaint Patient presents with ??? Other Coronary atherosclerosis ASSESSMENT AND RECOMMENDATIONS: 1. Coronary artery disease with a history of remote inferior infarction and stenting in . Clinically stable at this time and asymptomatic. No need for stress testing or other imaging. 2. Cardiac risk factors: On appropriate secondary prevention measures. Recent LDL of 82 is acceptable. The blood pressure is well controlled. 3. Respecting the patient's wishes and given his long-term stability, we will change his followup in cardiology to an as-needed basis. Given his lack of symptoms and excellent functional capacity, I do not see any need for stress testing or other imaging at this time. No medication changes seem required currently. HPI Mr Ballesteros returns today on a scheduled basis for followup of the above issues. He has been doingvery well this past year or more since his last visit with me. He remains very active with snowshoehiking and other activities without any symptoms. He has been compliant with his medications and ispaying attention to his diet. I have reviewed with him his recent lipid numbers showing an LDL of 82. He has had no myalgias, bleeding or other problems from his medications, and his review of systems is essentially all negative. Patient Active Problem List Diagnoses ??? Coronary atherosclerosis ??? Hyperlipidemia ??? Hypertension History reviewed. No pertinent past medical history. Past Surgical History Procedure Date ??? Vasectomy ??? Tonsillectomy and adenoidectomy Family History Problem Relation Age of Onset ??? Heart Disease Mother 60 CABG Social History Substance Use Topics ??? Smoking status: Never Smoker ??? Smokeless tobacco: Never Used ??? Alcohol Use: 25.5 - 26.0 oz/week 2 Cans of beer, 3-4 Drinks containing 0.5 oz of alcohol per week Current Outpatient Prescriptions on File Prior to Visit Medication Sig Dispense Refill ??? atorvastatin (LIPITOR) 80 mg tablet Take 1 Tab by mouth daily. 90 Tab 4 ??? ezetimibe (ZETIA) 10 mg tablet Take 1 Tab by mouth daily. 90 Tab 4 ??? atenolol (TENORMIN) 25 mg tablet Take 1 Tab by mouth daily. 90 Tab 4 ??? aspirin 325 mg tablet Take 325 mg by mouth daily. ??? lisinopril (PRINIVIL, ZESTRIL) 20 mg tablet Take 20 mg by mouth daily. ??? nitroGLYCERIN (NITROSTAT) 0.[address] 0.4 mg under the tongue every 5 minutes as needed. ??? hydrochlorothiazide (MICROZIDE) 12.5 mg capsule Take 12.5 mg by mouth daily. No Known Allergies Review of Systems Constitutional: Negative for fever and chills. HENT: Negative for congestion and sore throat. Eyes: Negative for blurred vision. Respiratory: Negative. Cardiovascular: Negative for chest pain, palpitations, orthopnea, claudication, leg swelling and PND. Gastrointestinal: Negative for nausea, vomiting, abdominal pain and blood in stool. Genitourinary: Negative for dysuria. Musculoskeletal: Negative for myalgias. Skin: Negative for rash. Neurological: Negative for dizziness, tremors, focal weakness, seizures, loss of consciousness and weakness. Psychiatric/Behavioral: Negative for substance abuse. - See HPI Objective: BP 124/68 Pulse 56 Ht 170.2 cm (67) Wt 68.493 kg (151 lb) BMI 23.65 kg/m2 Physical Exam Constitutional: appears well-developed. No distress. Neck: No JVD present. Carotid bruit is not present. Cardiovascular: Normal rate, regular rhythm and normal heart sounds. Exam reveals no friction rub. No murmur heard. Pulmonary/Chest: Effort normal and breath sounds normal. No respiratory distress. No wheezes. No rales. Musculoskeletal: No edema. Assessment: Plan: Gurpreet was seen today for other. Diagnoses and associated orders for this visit: Coronary atherosclerosis Hyperlipidemia Hypertension Other Orders - chlorthalidone (HYGROTON) 25 mg tablet; Take 25 mg by mouth daily. Obinna Roe MD documented in this encounter Plan of Treatment Not on file documented as of this encounter Visit Diagnoses Diagnosis Coronary atherosclerosis- Primary Coronary atherosclerosis of unspecified type of vessel, [place] or graft Hyperlipidemia Other and unspecified hyperlipidemia Hypertensive disorder Unspecified essential hypertension documented in this encounter Historical Medications * This list may reflect changes made after this encounter. Medication Sig Dispensed Refills Start Date End Date chlorthalidone (HYGROTON) 25 mg tablet Take 25 mg by mouth daily. added in this encounter Care Teams Hand I Tube Bender Relationship Specialty Start Date End Date Guero Aragon MD [address] [place] [address] [phone] PCP - General 12/13/10 06/10/19 documented as of this encounter
--- OUTSIDE RECORDS SUMMARY | 2023-10-05 14:57 | XMS_ITS | Encounter Summary ---
Author Organization [facility] Address [address] [place] [address] Care Team Providers Care Tallow Refiner Name Role Phone None, Provider Primary Care Provider Unavailabl e Encounter Details Date Type Department Care Team (Late st Contact Info) Description 08/29/2022 Lab Requisition [facility] Pathology & Laboratory Medicine - [address] [address] Outr Resulting Lab, Provider Social History Tobacco Use Types Packs/Day Years Used Date Smoking Tobacco: Never Assessed Interpersonal Safety Answer Date Record ed Physically [...] Associated Diagnosis Comments PSA TOTAL, DIAGNOSTIC Routine 08/28/2022 8:00 EDT documented in this encounter Results * (ABNORMAL) PSA TOTAL, DIAGNOSTIC (08/28/2022 8:00 EDT) PSA 8.5(H) <=6.5 ng/mL 08/29/2022 19:45 EDT [facility] Blood VENOUS BLOOD / Unknown 08/28/2022 8:00 EDT 08/29/2022 17:51 EDT Narrative [facility] - 08/29/2022 19:45 EDT NOTE: Serum PSA concentration should not be interpreted as absolute evidence for the presence or absence of malignant disease. Assayed on Siemens ADVIA Centaur XPT using chemiluminescent technology.??Values obtained by using different assay methods cannot be used interchangeably. Provider Outr Resulting Lab CHEMISTRY & BLOOD GAS ORDERABLES [facility] [address] [place] [address] documented in this encounter Visit Diagnoses Not on filedocumented in this encounter Care Teams Tallow Refiner Relationship Specialty Start Date End Date None, Provider PCP - General 06/11/19 documented as of this encounter
--- OUTSIDE RECORDS SUMMARY | 2023-10-05 14:57 | XMS_ITS | Encounter Summary ---
Author Organization [facility] Address [address] [place] [address] Care Team Providers Care Applications Intern Name Role Phone Guero Aragon MD Primary Care Provider [phone] Encounter Details Date Type Department Care Team (Late st Contact Info) Description 11/15/2018 Results Only [facility]- [facility] [phone] Gissell Lees MD [address] [place] [address],[facility] [address] [place] [address] Social History Tobacco Use Types Packs/Day Years [...] Procedure Name Priority Date/Time Associated Diagnosis Comments SURGICAL PATHOLOGY Routine 11/15/2018 7:29 EDT documented in this encounter Results * SURGICAL PATHOLOGY (11/15/2018 7:29 EDT) Pathology Report: SURGICAL PATHOLOGY REPORT Reports generated via electronic interface contain original data; however they are lacking the format of the original report. Caution should be taken when reading/interpreti ng unformatted reports. Name: ? GURPREET BALLESTEROS JR ? Accession #: ? [id number] ? : ? 1940 (Age: 78) ??M ? Collect Date: ? 11/15/2018 ? Location: ? [facility] ? Receive Date: ? 11/15/2018 ? Provider: GISSELL LEES MD Copy to: ? Final Pathologic Diagnosis: A. PROSTATE, LEFT BASE, BIOPSY (3): - Prostatic tissue (14.1 mm and 14.0 mm) with focal atrophy. - Fibromuscular tissue (1.3 mm) with colorectal mucosa; no specific histopathologic features. B. PROSTATE, LEFT MID, BIOPSY (3): - Prostatic tissue (14.4 mm and 11.2 mm) with focal atrophy. - Fibromuscular and adipose tissue (3.0 mm) with colorectal mucosa; no specific histopathologic features. C. PROSTATE, LEFT APEX, BIOPSY (2): - Prostatic tissue (0.7 mm and 11.0 mm) with focal atrophy. D. PROSTATE, RIGHT BASE, BIOPSY (3): - Prostatic tissue (12.7 mm, 8.0 mm and 1.1 mm) with focal atrophy and focal chronic inflammation. - Minute colorectal mucosa with no specific histopathologic features. E. PROSTATE, RIGHT MID, BIOPSY (3): - Prostatic tissue (9.2 mm and 8.4 mm) with focal atrophy. - Fibromuscular tissue (0.8 mm) with no specific distal to features. F. PROSTATE, RIGHT APEX, BIOPSY (2): - Prostatic tissue (14.4 mm and 14.0 mm) with atrophy. Document reviewed and electronically signed by: Dennis López MD Report ??Date: 11/22/2018 05:12 By the signature above, the attending physician certifies that he/she has personally conducted a gross and/or microscopic examination of the described specimens and rendered or confirmed the above diagnosis. Specimen(s) Received: A. ??Lt base B. ??Lt mid C. ??Lt apex D. ??Rt base E. ??Rt mid F. ??Rt apex Clinical History: Prostate biopsy; elevated PSA; clinical diagnosis code: ??R97.2 Gross Description: A. ?Received in formalin labelled with proper patient identification (initials M, O) and LT base are two [place]obedo-white tissue cores (1.7 cm and 1.8 cm in length, and each 0.1 cm in diameter). Entirely submitted in A1. B. ?Received in formalin labelled with proper patient identification (initials M, O) and LT mid are two [place]obedo-white tissue cores (1.4 cm and 1.7 cm in length, and each 0.1 cm in diameter). Entirely submitted in B1. C. ?Received in formalin labelled with proper patient identification (initials M, O) and LT apex are two escobedo-white tissue cores (1.2 cm and 1.5 cm in length, and each 0.1 cm in diameter). Entirely submitted in C1. D. ?Received in formalin labelled with proper patient identification (initials M, O) and RT base are two escobedo-white tissue cores (1.1 cm and 1.3 cm in length, and each 0.1 cm in diameter). Entirely submitted in D1. E. ?Received in formalin labelled with proper patient identification (initials M, O) and RT mid are two escobedo-white tissue cores (1.0 cm and 1.3 cm in length, and each 0.1 cm in diameter). Entirely submitted in E1. F. ?Received in formalin labelled with proper patient identification (initials M, O) and RT apex are two escobedo-white tissue cores (1.7 cm and 1.8 cm in length, and each 0.1 cm in diameter). Entirely submitted in F1. Ronit Meyers 11/19/2018 7:47 AM End of Report [facility] 11/15/2018 7:29 EDT 11/15/2018 7:29 EDT Gissell Lees MD PATHOLOGY ORDERABLES [facility] [address] [place] [address] documented in this encounter Visit Diagnoses Not on filedocumented in this encounter Care Teams Applications Intern Relationship Specialty Start Date End Date Guero Aragon MD [address] [place] [address] [phone] PCP - General 12/13/10 06/10/19 documented as of this encounter
--- OUTSIDE RECORDS SUMMARY | 2023-10-05 14:57 | XMS_ITS | Encounter Summary ---
Author Organization [facility] Address [address] [place] [address] Care Team Providers Care Irrigation Pump Installer Name Role Phone Unavailable Primary Care Provider Unavailabl e Encounter Details Date Type Department Care Team (Latest Contact Info) Description 04/30/2001 8:18 EST - 04/30/2001 11:59 EST Hospital Encounter [address] [address] Torsten Hunter MD [address] [place] [phone] Discharge Disposition: Auto Discharge Social History Tobacco Use Types Packs/Day Years Used Date Smoking Tobacco: Never Assessed Sex and Gender Information Value Date Recorded Sex Assigned at Not on file Gender Identity Not on file Sexual Orientation Not on file documented as of this encounter Discharge Disposition Disposition Code Departure Means Destination Auto Discharge documented in this encounter Plan of Treatment Not on file documented as of this encounter Visit Diagnoses Not on filedocumented in this encounter
--- OUTSIDE RECORDS SUMMARY | 2023-10-05 14:57 | XMS_ITS | Encounter Summary ---
Author Organization [facility] Address [address] [place] [address] Care Team Providers Care Clean Up Person Name Role Phone Guero Aragon MD Primary Care Provider [phone] None, Provider Primary Care Provider Unavailabl e Reason for Visit * Reason Onset Date Comments Results 05/27/2019 Encounter Details Date Type Department Care Team (Late st Contact Info) Description 05/27/2019 Telephone [facility] - [facility] Family Medicine [address], [facility] [address] [place] [address] Guero Aragon MD [address] [facility] [address] [place] [address] Results Social History Tobacco Use Types Packs/Day Years Used Date Smoking Tobacco: Never Smokeless Tobacco: Never Alcohol Use Standard Drinks/Week Comments Yes 4.5 (1 standard drink = 0.6 oz p ure alcohol) Sex and Gender Information Value Date Recorded Sex Assigned at Not on file Gender Identity Not on file Sexual Orientation Not on file documented as of this encounter Miscellaneous Notes * Telephone Encounter - Anastasiia Kang - 06/11/2019 0907 EDT Spoke to PT, he has moved and transferred his care, I have removed BS as PCP * Telephone Encounter - Guero Aragon MD - 06/05/2019 0732 EDT Please mail patient letter to schedule ov. * Telephone Encounter - Sarah Presley - 05/27/2019 1436 EDT LVUTCB for scheduling. * Telephone Encounter - Guero Aragon MD - 05/27/2019 1237 EDT I havent seen gurpreet in a LONG time; please offer 40 in ov f/u next available. documented in this encounter Plan of Treatment Not on file documented as of this encounter Visit Diagnoses Not on filedocumented in this encounter Care Teams Clean Up Person Relationship Specialty Start Date End Date Guero Aragon MD [address] [place] [address] [phone] PCP - General 12/13/10 06/10/19 None, Provider PCP - General 06/11/19 documented as of this encounter
--- OUTSIDE RECORDS SUMMARY | 2023-10-05 14:57 | XMS_ITS | Continuity of Care Document ---
Author Organization [facility] Address [address] [place] [address] Care Team Providers Care Engineering Teacher Name Role Phone [facility] Exhibit Electrician JERROD QUIGLEY Rn Placement [facility] Dentist Assessment Encounter Date Assessment Date Assessment LastModified by Organization Details LastModified Time 09/03/2023 09/03/2023 Patient presente d to office today for their Medicare Annual Wellness Visit. Education was provided on healthy nutrition, including a diet rich in fruits and vegetables, minimizing simple carbohydrates, salt, and saturated fats. Encouraged regular cardiovascular exercise such as walking at least 30 minutes daily, 5 times per week. Emphasized preventive health measures and educated pt on fall prevention and community-based lifestyle interventions to help reduce health risks and promote healthy living. brandon Not available 08/31/2023 07:42:05 Plan of Treatment Reminders Order Date Submit Date Provider Last Modified By Organization Details Last Modified Time Details Appointments Nurse Visit 20 2023 11:30A M [facility] Nursing Staff Not available Not available Not available Medicare Annual Wellness 40 2024 07:30A M Darlin Hoff Not available Not available Not available Lab PSA, serum or plasma 2023 024 [facility] (Registration ), [address] [place] [address] [place], [address], 09/05/2023 09:30:44 HbA1c (hemoglob in A1c), blood 2023 024 [email or web address] [facility] (Registration ), [address] [place] [address] [place], [address], 09/10/2023 08:21:38 CMP, serum or plasma 2023 024 [facility] (Registration ), [address] [place] [address] [place], [address], 09/04/2023 07:17:55 magnesium , serum or plasma 2023 024 [email or web address] [facility] (Registration ), [address] [place] [address] [place], [address], 09/10/2023 08:21:27 vitamin D, 25-hydrox y, total, serum 2023 024 [facility] (Registration ), [address] [place] [address] [place], [address], 09/04/2023 07:17:55 Referral orthopedi c surgeon referral 2023 024 [facility] [address], [address], [place], [address], 09/04/2023 11:50:34 Procedures None recorded. Surgeries None recorded. Imaging MRI, shoulder, w/o contrast - Left shoulder; has been referred to [facility] 2023 024 [facility] (Imaging), [address], [place], [address], 09/14/2023 17:51:16 Medication Orders None recorded. Patient TargetsNo targets recorded. Patient Instructions Encounter Date Encounter Id Patient Instructions Last Modified By Organization Details Last Modified Time 09/03/2023 [id number] visual acuity* [email or web address] Not availa ble 09/03/2023 12:42:07 Advance Directives on file [email or web address] Not available 09/03/2023 08:23:06 Reason for Referral Orthopedic Surgeon Referral for Pain of left shoulder region Referring Physician: Darlin Gallegos, Family Medicine, Encounter Date: 09/03/2023 Results Created Date Observation Date Name Description Value Unit Range Abnormal Flag LastModifiedBy Organization Detail LastModifiedTime 09/03/19 24 09/03/2023 visua l acuit y* R Eye Uncorrected 20/ Not Available [facility] [address] [place], [address], 08/31/2023 08:29:13 09/03/19 24 09/03/2023 visua l acuit y* L Eye Uncorrected 20/25 Not Available [facility] [address] [place], [address], 08/31/2023 08:29:13 09/03/19 24 09/03/2023 visua l acuit y* Both Uncorrected Not Available [facility] [address] [place], [address], 08/31/2023 08:29:13 09/14/19 24 09/14/2023 MRI, silvino paniagua, w/o contr ast No observ ation record ed. [address], [place], [address], 10/02/2023 10:54:03 Result Notes None recorded. 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 - Continue same. We can consider LFTs next year - these have been wnl, last checked 08/2020 Problem Code: E78.5; Problem Code Type: ICD-10; Not Available [facility] 3 05:18:21 Inguinal hernia Active 2016 Problem Code: K40.90; Problem Code Type: ICD-10; Not Available [facility] 3 05:18:21 Intestinal obstruction Active 2017 Problem Code: K56.609; Problem Code Type: ICD-10; Not Available [facility] 3 05:18:21 Venous thrombosis Active 2017 Problem Code: K64.5; Problem Code Type: ICD-10; Not Available [facility] 3 05:18:21 Erectile dysfunction Active 2017 Problem Code: N52.9; Problem Code Type: ICD-10; Not Available [facility] 3 05:18:21 Benign neoplasm of sigmoid colon Active Problem Code: D12.5; Problem Code Type: ICD-10; Not Available [facility] 3 05:18:21 Hydrocele of testis Active Problem Code: N43.3; Problem Code Type: ICD-10; Not Available [facility] 3 05:18:21 Rupture of rotator cuff of right shoulder Active 11/29/2020 - Improved - Shereen Sanchez - Problem Code: M75.101; Problem Code Type: ICD-10; Not Available [facility] 3 05:18:22 Lower urinary tract symptoms due to benign prostatic hypertrophy Active 201612/16/2019 - Comments only - Darlin Gallegos [employer] - Per Dr Shaikh 11/26/19, good symptomatic control with tamsulosin 0.4mg qhs, f/u 1 year with pre-clinic PSA. PSA ordered by Dr Shaikh for 11/25/2020 Problem Code: N40.1; Problem Code Type: ICD-10; Not Available [facility] 3 05:18:22 Actinic keratosis Active 201605/15/2019 - Comments only - Darlin Semajanujace-Luis Eduardo [employer] - Multiple lesions on sun-exposed areas, consistent with actinic keratoses. Will refer to dermatology for full body exam and to discuss treatment options and prevention measures. Did discuss importance of wearing sunscreen, hat, protective clothing. Problem Code: L57.0; Problem Code Type: ICD-10; Not Available [facility] 3 05:18:22 Prediabetes Active 201808/25/2021 - Comments only - Darlin Semajanujace-Luis Eduardo [employer] - - Serum A1c drawn today for monitoring Problem Code: R73.03; Problem Code Type: ICD-10; Not Available [facility] 3 05:18:22 Eczema Active 201810/08/2020 - Comments only - Darlinarben Chaanujace-Luis Eduardo [employer] - - Will refer to Dr Quigley for evaluation of this nonhealing lesion - Meanwhile he will continue to apply Aquaphor to the area to prevent cracking or peeling. Problem Code: L30.8; Problem Code Type: ICD-10; Not Available [facility] 3 05:18:22 Melanocytic nevus Active 201905/15/2019 - Comments only - Darlin Semajanujace-Luis Eduardo [employer] - Growing mole, <6mm in diameter. Will have dermatology take a look at it when seen for actinic keratoses. Problem Code: D22.9; Problem Code Type: ICD-10; Not Available [facility] 3 05:18:22 Adult health examination Active 201908/30/2022 - Comments only - Darlinarben Chaanujace-Luis Eduardo [employer] - - A1c, CMP drawn today - Follow up in 1 year, sooner prn Problem Code: Z00.00; Problem Code Type: ICD-10; Not Available [facility] 3 05:18:22 Heart murmur Active 201908/18/2019 - Comments only - Darlinarben ChaRalph [facility] - - Pt states has been there for years, is asymptomatic - Has had full cardiac workup Problem Code: R01.1; Problem Code Type: ICD-10; Not Available [facility] 3 05:18:22 Cataract Active 201908/18/2019 - Comments only - Darlin El [facility] - - Keep appointment at [facility] Problem Code: H26.9; Problem Code Type: ICD-10; Not Available [facility] 3 05:18:23 Spontaneous rupture of flexor tendons Active 2020 Problem Code: M66.369; Problem Code Type: ICD-10; Not Available [facility] 3 05:18:23 Impacted cerumen in left ear Active 202108/25/2021 - Improved - Darlin Gallegos [facility] - - He was able to remove [...] H61.22; Problem Code Type: ICD-10; Not Available [facility] 3 05:18:23 Gastroesophag eal reflux disease without esophagitis Active 202108/25/2021 - Comments only - Darlin Gallegos [facility] - - Under excellent control since starting omeprazole 20mg po qd - He may try decreasing to qod, and continue on that if his symptoms are adequately controlled. Otherwise, OK to continue on daily dosing. - Also reviewed lifestyle measures Problem Code: K21.9; Problem Code Type: ICD-10; Not Available [facility] 3 05:18:23 Malignant melanoma of skin Active 202211/06/2022 - Comments only - Darlin Gallegos [employer] - F/U Dr Quigley 11/06/22: Patient assured about his benign skin examination. Continue our every 6 month follow-ups for 2 years then once yearly thereafter. Problem Code: C43.9; Problem Code Type: ICD-10; Not Available [facility] 3 05:18:23 Prostate specific antigen above reference range Active 202208/30/2022 - Comments only - Darlin Gallegos [employer] - - PSA drawn today, will send result to Dr Shaikh Problem Code: R97.20; Problem Code Type: ICD-10; Not Available [facility] 3 05:18:23 Xerostomia Active 202208/30/2022 - Comments only - Darlin Gallegos [employer] - - Suggest Biotene or similar mouthwash/spr ay, hydration - He is not overly bothered by this Problem Code: R68.2; Problem Code Type: ICD-10; Not Available [facility] 3 05:18:23 Hypo-osmolali ty and or hyponatremia Active 2022 Problem Code: E87.1; Problem Code Type: ICD-10; Not Available [facility] 3 05:18:23 Radial styloid tenosynovitis Completed Problem Code: M65.4; Problem Code Type: ICD-10; Not Available [facility] 3 05:18:24 Pre-surgery evaluation Completed 202011/29/2020 Problem Code: Z01.818; Problem Code Type: ICD-10; Not Available [facility] 3 05:18:24 Type 2 diabetes mellitus without complication Completed 201408/18/2019 Problem Code: E11.9; Problem Code Type: ICD-10; Not Available [facility] 3 05:18:24 Pain of left shoulder region Active 2023 DARLIN ISBELL, [employer] [address], [place], [address] , [facility] 4 08:09:59 Potassium level - finding Active 2023 DARLIN PEREZ-Shelly ISBELL, [employer]- [address], [place], [address] , [facility] 4 13:58:13 Problem Notes None recorded. Medical Equipment None Reported. Allergies Allergen ID Allergen Name Allergen Category Reaction Reaction Severity Criticality Documentation Date Start Date Code Code System Note Provider Name and Address Organization Details Recorded Time 50208 Viagra medicatio n nausea moderate Not available 01/26/20232017 65219 5 RxNorm nause a, heada sully Aller gyRea ction : 'naus ea, heada sully'; Not Available [facility] 3 16:21:55 Medications Name Sig Start Date [...] Available Not Available No t Available Vitals Date Recorded Body height Body mass index (BMI) Body weight Heart rate Respiratory rate Systolic blood pressure Diastolic blood pressure Provider Name and Address Organization Details Last Updated DateTime 4 170.18 cm 23.6 kg/m2 02654.2 9 g 56 /min 18 /min 124 mm[Hg] 58 mm[Hg] Lazara turner LPN [facility] 07:30:03 Social History Question Answer Notes LastModified by Organizat ion Details LastModified Time Tobacco Smoking Status Never Smoker Lazara Tidwell LPN [facility] 08/31/2023 07:50:39 Do You Have An Advance Directive? Yes [email or web address] Information n ot available 08/31/2023 What Is Your Code Status? Full Code [email or web address] Information not available 08/31/2023 Date Of Most Recent HSA 09/03/2023 [email or web address] Information not available 08/31/2023 Would You Say That, In General, Your Health Is Very Good [email or web address] Information not available 08/31/2023 How Often Does Anyone, Including Family, Physically Hurt You? Never ygyfrrbsuib96 Information not available 08/31/2023 How Often Does Anyone, Including Family, Insult Or Talk Down To You? Never [email or web address] Information no t available 08/31/2023 How Often Does Anyone, Including Family, Threaten You With Harm? Never [email or web address] Information not available 08/31/2023 How Often Does Anyone, Including Family, Scream Or Curse At You? Never Information not available 08/31/2023 Within The Past 12 Months, You Worried That Your Food Would Run Out Before You Got Money To Buy More. Never True efhbyfaysfq35 Information n ot available 08/31/2023 Within The Past 12 Months, The Food You Bought Just Didn't Last And You Didn't Have Money To Get More. Never True wygnwlcudhs68 Information n ot available 08/31/2023 How Hard Is It For You To Pay For The Very Basics Like Food, Housing, Medical Care, And Heating? Would You Say It Is: Not Hard At All [email or web address] Information not available 08/31/2023 In The Past 12 Months, Has Lack Of Reliable Transportation Kept You From Medical Appointments, Meetings, Work Or From Getting Things Needed For Daily Living? No [email or web address] Information not available 08/31/2023 What Is Your Housing Situation Today? I Have Housing. fcdppounhly38 Information not available 08/31/2023 How Often In The Past Year Have You Used Marijuana (including Smoking, Vaping, Dabbing, Or Edibles)? Never rfpalwobkjq94 Information not available 08/31/2023 How Often In The Past Year Have You Used Prescription Medications That Were Not Prescribed To You? Never [email or web address] Information n ot available 08/31/2023 How Often In The Past Year Have You Taken Your Own Prescription Medication More Than The Way It Was Prescribed Or For Different Reasons Than Its Intended Purpose? Never ogrtkcnnjdc14 Information no t available 08/31/2023 How Often In The Past Year Have You Used Other Drugs (for Example, Heroin, Cocaine, Meth, Salvia, Inhalants)? Never grayvblhpsd32 Information not available 08/31/2023 Have You Ever Used IV Drugs? No Information not available 08/31/2023 During The Past Four Weeks Has Your Physical And Emotional Health Limited Your Social Activities With Family And Friends, Neighbors, Or Groups? Not At All wiudxbyliqz82 Information not available 08/31/2023 During The Past Four Weeks, Was Someone Available To Help You If You Needed And Wanted Help? (For Example, If You [place] Very Nervous, Lonely, Or Blue; Got Sick And Had To Stay In Bed; Needed Someone To Talk To; Needed Help With Daily Chores; Or Needed Help Just Taking Care Of Yourself.) Yes- As Much As I Wanted wojwkkmosvy88 Information not available 08/31/2023 During The Past Four Weeks, What Was The Hardest Physical Activity You Could Do For At Least 2 Minutes? Heavy guskinhskgo75 Information not available 08/31/2023 Can You Get To Places Out Of Walking Distance Without Help? (For Example, Can You Travel Alone On Buses Or Taxis, Or Drive Your Own Car?) Yes gzebtxieihz32 Information not available 08/31/2023 Can You Go Shopping For Groceries Or Clothes Without Someone? s Help? Yes khmvltyaljz93 Information not available 08/31/2023 Can You Prepare Your Own Meals? Yes wgxqrshrcsa29 Information not available 08/31/2023 Can You Do Your Housework Without Help? Yes dgfglaimdko14 Information not available 08/31/2023 Because Of Any Health Problems, Do You Need The Help Of Another Person With Your Personal Care Needs Such As Eating, Bathing, Dressing, Or Getting Around The House? No Information not available 08/31/2023 Can You Handle Your Own Money Without Help? Yes elwkcevhsoj10 Information not available 08/31/2023 Are You Having Difficulties Driving Your Car? No ucakepjyslj48 Information no t available 08/31/2023 Do You Always Fasten Your Seat Belt When You Are In A Car? Yes- Usually mbzyswlnlka61 Information not available 08/31/2023 How Often During The Past Four Weeks Have You Been Bothered By Any Of The Following Problems? Falling Or Dizzy When Standing Up? Never fyftflehxsg40 Information not available 08/31/2023 Sexual Problems? Never Infor mation not available 08/31/2023 Trouble Eating Well? Never obhbiwfwcnu03 Information not available 08/31/2023 Teeth Or Denture Problems? Never viywxfnehbo16 Information not available 08/31/2023 Problems Using The Telephone? Never mmafhegpvgd78 Information not available 08/31/2023 Tiredness Or Fatigue? Never yiidmsymjbw05 Information not available 08/31/2023 Have You Had 2 Or More Falls Or Sustained An Injury With A Fall In The Last Year? No [email or web address] Information no t available 08/31/2023 Do You Have Difficulty With Walking Or Balance? No socperjrucd39 Information not available 08/31/2023 Do You Currently Use A Hearing Device? No nezlapijbmu96 Information not available 08/31/2023 Do You Currently Have Any Trouble With Your Vision? No Information no t available 08/31/2023 Do You Exercise For About 20 Minutes Three Or More Days A Week? No- I Usually Do Not Exercise Much nfakkldvjwd40 Information not available 08/31/2023 Are There Any Safety Concerns In Your Home (see Attached CDC Pamphlet)? No msgbmnisemc82 Information not available 08/31/2023 How Often Do You Have Trouble Taking Medicines The Way You Have Been Told To Take Them? I Always Take Them As Prescribed fiyrzpkthwj53 Information not available 08/31/2023 How Confident Are You That You Can Control And Manage Most Of Your Health Problems? Very Confident thbgvarpsmw26 Information not available 08/31/2023 Do You Currently Have Any Difficulty With Your Hearing? No vulxngjshka98 Information not available 08/31/2023 Date Of Most Recent SBINS 09/03/2023 iakefyaldva62 Information not available 08/31/2023 Do You Have A Medical Power Of Territory Sales Consultant? Yes evemodgwqui22 Information not available 08/31/2023 What Was The Date Of Your Most Recent Tobacco Screening? 09/03/2023 [email or web address] Information not available 08/31/2023 Has Tobacco Cessation Counseling Been Provided? Yes tqwfpqbqlge01 Information not available 08/31/2023 Do You Or Have You Ever Used Any Other Forms Of Tobacco Or Nicotine? No wsmwrdzqowq81 Information not available 08/31/2023 Sex: Male Functional [...] Recorded Time Tdap 09/02/2012 completed Not Available [facility] 06:19:41 Pneumococcal conjugate PCV 13 06/17/2018 completed Not Available [facility] 01/26/2023 06:19:42 Td(adult) unspecified formulation 06/15/2002 completed Not Available [facility] 01/26/2023 06:19:42 Td(adult) unspecified formulation 06/19/2016 completed Not Available [facility] 01/26/2023 06:19:42 zoster recombinant 07/03/2017 completed Not Available [facility] 01/26/2023 06:19:42 zoster recombinant 09/17/2017 completed Not Available [facility] 01/26/2023 06:19:42 Influenza, high-dose, quadrivalent, PF 12/28/2020 completed Not Available [facility] 01/26/2023 06:19:42 Influenza, high-dose, quadrivalent, PF 01/17/2022 completed Not Available [facility] 01/26/2023 06:19:42 Influenza, high-dose, quadrivalent, PF 01/19/2020 completed Not Available [facility] 01/26/2023 06:19:42 COVID-19, mRNA, LNP-S, PF, 100 mcg/0.5mL dose or 50 mcg/0.25mL dose 04/21/2020 completed Not Available [facility] 01/26/2023 06:19:42 COVID-19, mRNA, LNP-S, PF, 100 mcg/0.5mL dose or 50 mcg/0.25mL dose 05/19/2020 completed Not Available [facility] 01/26/2023 06:19:42 COVID-19, mRNA, LNP-S, PF, 100 mcg/0.5mL dose or 50 mcg/0.25mL dose 08/11/2021 completed Not Available [facility] 01/26/2023 06:19:42 COVID-19, mRNA, LNP-S, PF, 100 mcg/0.5mL dose or 50 mcg/0.25mL dose 01/12/2021 completed Not Available [facility] 01/26/2023 06:19:43 COVID-19, mRNA, LNP-S, bivalent, PF, 30 mcg/0.3 mL dose 08/28/2022 completed Not Available [facility] 01/27/20 06:19:43 COVID-19, mRNA, LNP-S, bivalent, PF, 30 mcg/0.3 mL dose 01/17/2022 completed Not Available [facility] 01/27/20 06:19:43 pneumococcal polysaccharide PPV23 08/18/2019 completed Not Available [facility] 2022 06:19:43 Influenza, high-dose, quadrivalent, PF 01/11/2023 completed Not Available [facility] 03/30/2023 05:31:19 COVID-19, mRNA, LNP-S, PF, irineo-sucrose, 30 mcg/0.3 mL 01/11/2023 completed Not Available [facility] 03/30/2023 05:31:19 Past Encounters Encounter ID Performer Location Encounter Start Date Encounter Closed Date Diagnosis/Indication Diagnosis SNOMED-CT Code [id number] DARLIN SU, [employer] [address] [address] 09/03/2023 07:13:44 09/03/2023 08:45:16 Adult health examination [id number] Screening for malignant neoplasm of colon 405502232 Essential hypertension 59671504 Pain of le ft shoulder region 3036598354 Prostate s pecific antigen above reference range 949994631 Prediabetes 185420038 Hyperlipidemia 10604805 Health Concerns Section Related Observation LastModified by Organization Detai ls LastModified Time None Recorded Concern Status LastModified by Organization Details LastModified Time None Recorded Payers Encounter Date Sequence Insurance Name Policy Number Policy Coats Covered Member ID Coats Member ID Guarantor Name 09/03/2023 2 [employer] SUPPLEMENTAL - [employer]UR[employer] (MEDICARE SUPPLEMENT) [place] [id number] [place] 09/03/2023 1 [place] [employer] Gurpreet Favian [id number] Gurpreet Favian Notes Date Note Type Note Provider Name and Address Organization Details Recorded Time 09/03/2023 text/html HPI Notes: Medicare Annual Wellness Visit Reported by patient. Diet and Nutrition: follows recommended diet Fracture Risk: no recent explained fracture; no sudden unexplained fractures Physical Activity: exercises on a regular basis; good physical condition; mows lawn with push mower for >2 hours Depression Risk: reports mood is very good Orientation: oriented to person, place, time Speech/Motor difficulties: no speech difficulties Hearing: no loss of hearing Vision: worse near; gets blurry after 2 hours of reading Activities of Daily Living: able to bathe with limited or no assistance; able to control urination and bowels; able to dress with limited or no assistance; able to feed self with limited or no assistance; able to get out of chair or bed with limited or no assistance; able to groom with limited or no assistance; able to toilet with limited or no assistance Instrumental Activities of Daily Living: able to do house work with limited or no assistance; able to grocery shop with limited or no assistance Gurpreet is an 83yo male with PMH malignant melanoma, followed regularly by [facility] Derm[facility]ology; 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 Urology; GERD on omeprazole; prediabetes. He presents today for his annual Medicare Wellness Visit with concerns of LEFT SHOULDER PAIN DARLIN GALLEGOS, PREMIX CONCRETE BATCHER-BC [address], [place], [address], [facility], [facility]. 09/03/2023 20:22:30
--- OUTSIDE RECORDS SUMMARY | 2023-10-05 14:57 | XMS_ITS | Encounter Summary ---
Author Organization [facility] Address [address] [place] [address] Care Team Providers Care Real Estate Underwriter Name Role Phone Guero Aragon MD Primary Care Provider [phone] Reason for Visit * Reason Comments Coronary Artery Disease 1 year follow up to cad,htn. Encounter Details Date Type Department Care Team (Late st Contact Info) Description 12/14/2010 10:15 EDT Office Visit [facility] Cardiology - [address] [phone] Obinna Roe MD [address] [place] [address] CAD (coronary artery disease); HTN (hypertension) Social History Tobacco Use Types Packs/Day Years Used Date Smoking Tobacco: Never Assessed Sex and Gender Information Value Date Recorded Sex Assigned at Not on file Gender Identity Not on file Sexual Orientation Not on file documented as of this encounter Last Filed Vital Signs Vital Sign Reading Time Taken Comments Blood Pressure 120/74 12/14/2010 1013 EDT Pulse 43 12/14/2010 1013 EDT Temperature - - Respiratory Rate - - Oxygen Saturation - - Inhaled Oxygen Concentration - - Weight 68 kg (150 lb) 12/14/2010 1013 EDT Height 172.7 cm (5' 8) 12/14/2010 1013 EDT Body Mass Index 22.81 12/14/2010 1013 EDT documented in this encounter Ordered Prescriptions Prescription Sig Dispensed Refills Start Date End Da te atenolol (TENORMIN) 25 mg tablet Take 1 Tab by mouth daily. 90 Tab 4 12/14/2010 ezetimibe (ZETIA) 10 mg tablet Take 1 Tab by mouth daily. 90 Tab 4 12/14/2010 atorvastatin (LIPITOR) 80 mg tablet Take 1 Tab by mouth daily. 90 Tab 4 12/14/2010 documented in this encounter Progress Notes * Obinna Roe MD - 12/14/2010 1035 EDT Subjective: Patient ID: Gurpreet Ballesteros Jr. is an 70 y.o. male. Chief Complaint Patient presents with ??? Coronary Artery Disease 1 year follow up to cad,htn. HPI Mr Ballesteros returns today on a scheduled basis for followup of his coronary artery disease with a history of a limited inferior infarction back in the treated with bare-metal stent implantation at that time. His last stress test in 2008 with Cardiol[facility] imaging showed a small mixed inferior defect, and he has been followed along conservatively. He has been compliant with his medications. Ondetailed questioning, he has had no medication complications or cardiac symptoms. He has had no other medical problems. His alcohol intake is minimal, and he is a nonsmoker. The patient tells me thata lipid profile earlier this year with Dr Aragon (results not available here) was very good, and he thinks the LDL was in the 70s. His review of systems otherwise, as noted below, is all negative. He is very active. Patient Active Problem List Diagnoses Code ??? CAD (coronary artery disease) 414.00AE ??? HLD (hyperlipidemia) 272.4BH ??? HTN (hypertension) 401.9AF History reviewed. No pertinent past medical history. Past Surgical History Procedure Date ??? Vasectomy ??? Tonsillectomy and adenoidectomy Family History Problem Relation Age of Onset ??? Heart Disease Mother 60 CABG Social History Substance Use Topics ??? Smoking status: Not on file ??? Smokeless tobacco: Not on file ??? Alcohol Use: Not on file Current outpatient prescriptions ordered prior to encounter Medication Sig Dispense Refill ??? atorvastatin (LIPITOR) [...] Negative for rash. Neurological: Negative for dizziness, tremors and weakness. Psychiatric/Behavioral: Negative for substance abuse. - See HPI Objective: BP 120/74 Pulse 43 Ht 172.7 cm (68) Wt 68.04 kg (150 lb) BMI 22.81 kg/m2 Physical Exam Vitals reviewed. Constitutional: He appears well-developed. HENT: Head: Atraumatic. Eyes: No scleral icterus. Neck: Normal range of motion. No JVD present. No tracheal deviation present. Cardiovascular: Normal rate, regular rhythm, normal heart sounds and intact distal pulses. No extrasystoles are present. Exam reveals no gallop, no S3, no S4 and no distant heart sounds. No murmur heard. Pulmonary/Chest: No respiratory distress. He has no wheezes. He has no rales. Abdominal: Soft. He exhibits no mass. No tenderness. He has no guarding. Musculoskeletal: He exhibits no edema. Neurological: He is alert. Skin: Skin is warm and dry. No rash noted. Psychiatric: His behavior is normal. ECG personally reviewed: EKG: unchanged from previous tracings, sinus bradycardia. Assessment: Mr Ballesteros is clinically stable and on appropriate secondary prevention measures. I see no evidence of heart failure, arrhythmias or recurrent ischemia. Continued conservative followup I think is all that is currently required. I do not see any need for stress testing or other imaging at this time. The target LDL here is down around 70 given his known CAD. I have reviewed his medications with him in detail and renewed several of those electronically for him. Plan: Gurpreet was seen today for coronary artery disease. Diagnoses and associated orders for this visit: Cad (coronary artery disease) - EKG 12 LEAD Htn (hypertension) - EKG 12 LEAD Other Orders - atorvastatin (LIPITOR) 80 mg tablet; Take 1 Tab by mouth daily. - ezetimibe (ZETIA) 10 mg tablet; Take 1 Tab by mouth daily. - atenolol (TENORMIN) 25 mg tablet; Take 1 Tab by mouth daily. documented in this encounter Miscellaneous Notes * Scanned Note-Null - Canning Machine Operator, Scan - 12/20/2010 0811 EDTAssociated Order(s): ECG REPORT - SCANNED documented in this encounter Plan of Treatment Scheduled Orders Name Type Priority Associated Diagnoses Orde r Schedule EKG 12-LEAD ECG Routine CAD (coronary artery disease) HTN (hypertension) Ordered: 12/14/2010 documented as of this encounter Procedures Procedure Name Priority Date/Time Associated Diagnosis Comments ECG REPORT - SCANNED 12/20/2010 8:11 EDT documented in this encounter Results * ECG REPORT - SCANNED (12/20/2010 8:11 EDT) 12/20/2010 8:11 EDT Narrative Procedure Note Canning Machine Operator, Scan - 12/20/2010 8:11 EDT Scan Canning Machine Operator PROCEDURE/MINOR SURG ICAL ORDERABLES documented in this encounter Visit Diagnoses Diagnosis CAD (coronary artery disease) Coronary atherosclerosis of unspecified type of vessel, [place] or graft HTN (hypertension) Unspecified essential hypertension documented in this encounter Discontinued Medications Medication Sig Discontinue Reason Start Date End Da te atorvastatin (LIPITOR) 80 mg tablet Take 80 mg by mouth daily. Reorder 12/14/2010 ezetimibe (ZETIA) 10 mg tablet Take 10 mg by mouth daily. Reorder 12/14/2010 atenolol (TENORMIN) 25 mg tablet Take 25 mg by mouth daily. Reorder 12/14/2010 documented as of this encounter Care Teams Real Estate Underwriter Relationship Specialty Start Date End Date Guero Aragon MD [address] [place] [phone] PCP - General 12/13/10 06/10/19 documented as of this encounter
--- OUTSIDE RECORDS SUMMARY | 2023-10-05 14:57 | XMS_ITS | Encounter Summary ---
Author Organization [facility] Address [address] [place] [address] Care Team Providers Care Barrel Lathe Operator Outside Name Role Phone Unavailable Primary Care Provider Unavailabl e Encounter Details Date Type Department Care Team (Late st Contact Info) Description 06/09/2010 Abstract Used for ABSTRACTING Data [phone] Obinna Roe MD [address] [place] [address] [address] [place] [address] Social History Tobacco Use Types Packs/Day Years Used Date Smoking Tobacco: Never Assessed Sex and Gender Information Value Date Recorded Sex Assigned at Not on file Gender Identity Not on file Sexual Orientation Not on file documented as of this encounter Plan of Treatment Not on file documented as of this encounter Visit Diagnoses Not on filedocumented in this encounter Historical Medications * This list may reflect changes made after this encounter. Medication Sig Dispensed Refills Start Date End Date hydrochlorothiazide (MICROZIDE) 12.5 mg capsule Take 12.5 mg by mouth daily. nitroGLYCERIN (NITROSTAT) 0.[address] 0.4 mg under the tongue every 5 minutes as needed. lisinopril (PRINIVIL, ZESTRIL) 20 mg tablet Take 20 mg by mouth daily. aspirin 325 mg tablet Take 325 mg by mouth daily. ezetimibe (ZETIA) 10 mg tablet Take 10 mg by mouth daily. 12/14/2010 atenolol (TENORMIN) 25 mg tablet Take 25 mg by mouth daily. 12/14/2010 atorvastatin (LIPITOR) 80 mg tablet Take 80 mg by mouth daily. 12/14/2010 added in this encounter
[2023-10-05 16:12] LABS: Anion Gap 9.2 mmol/L (3-11); BUN 20 mg/dL (7-18); CO2 26.8 mmol/L (21.0-32.0); Chloride 104 mmol/L (98-107); Estimated GFR 75.61 (mL/min/1.73m2); Glucose 108 mg/dL (74-106); Potassium 4.3 mmol/L (3.5-5.1); Sodium 140 mmol/L (136-145)
== END 2023-10-05 14:52 | disposition home or self-care (01) ==
LOC: NCHCN 14:51
PROVIDERS: PCP Family Medicine; Visit Provider Nurse Practitioner Family
DX: E87.6 Hypokalemia (principal)
CPT/HCPCS: 80048

== ENCOUNTER 2024-09-05 01:00 | Outpatient (CLI) | payer MEDICARE, OTHER, SELFPAY ==
[2024-09-08 11:29] LABS: PSA, Ultrasensitive 0.11 ng/mL (<= 7.2)
[2024-09-13 13:52] LABS: Testosterone, Total <7.0 ng/dL (240-950)
== END 2024-09-05 01:01 | disposition home or self-care (01) ==
LOC: LBO 01:01
PROVIDERS: PCP Family Medicine; Visit Provider Radiology Radiation Oncology
DX: C61 Malignant neoplasm of prostate (principal)
CPT/HCPCS: 36415; 84153; 84403

== ENCOUNTER 2024-09-12 23:44 | Outpatient (REF) | payer MEDICARE, OTHER, SELFPAY ==
[2024-09-12 15:40] LABS: ALT 50 U/L (16-63); AST 26 U/L (15-37); Albumin 3.9 g/dL (3.4-5.0); Alkaline Phosphatase 93 U/L (46-116); Anion Gap 9.6 mmol/L (3-11); BUN 19 mg/dL (7-18); Bilirubin, Total 0.4 mg/dL (0.2-1.0); CO2 28.4 mmol/L (21.0-32.0); CREATININE 0.7 mg/dL (0.70-1.30); Calcium 8.7 mg/dL (8.5-10.1); Calculated LDL 36 mg/dL (<100); Chloride 101 mmol/L (98-107); Cholesterol 159 mg/dL (<200); Glucose 106 mg/dL (74-106); HDL Cholesterol 50 mg/dL (>or=40); Potassium 4.3 mmol/L (3.5-5.1); Sodium 139 mmol/L (136-145); Total Protein 6.5 g/dL (6.4-8.2); Triglyceride 368 mg/dL (<150)
[2024-09-12 15:48] LABS: Hemoglobin A1C 5.9 % (<5.7)
== END 2024-09-12 23:45 | disposition home or self-care (01) ==
LOC: NCHCN 23:44
PROVIDERS: PCP Family Medicine; Visit Provider Nurse Practitioner Family
DX: E78.5 Hyperlipidemia, unspecified (principal); R73.03 Prediabetes
CPT/HCPCS: 80053; 80061; 83036

== ENCOUNTER 2024-10-03 13:27 | Outpatient (REF) | payer MEDICARE, OTHER, SELFPAY ==
[2024-10-03 16:34] LABS: Abs Immature Grans 0.02 10^3/uL (0.0-0.06); HCT 34.3 % (40.0-50.0); HGB 12.0 g/dL (13.5-17.5); Immature Grans % 0.6 %; MCH 33.1 pg (27.0-33.0); MCHC 35.0 % (32.0-36.0); MCV 95 fL (80-95); MPV 10.3 fL (8.0-11.0); Platelet Count 183 10^3/uL (130-400); RBC 3.62 10^6/uL (4.36-5.78); RDW 11.8 % (11.8-14.1); RDW-SD 41.6 fL; WBC 3.24 10^3/uL (4.4-10.8)
[2024-10-03 17:04] LABS: TSH (W/Ref FT4) 0.63 uIU/mL (0.36-3.74)
== END 2024-10-03 13:28 | disposition home or self-care (01) ==
LOC: NCHCN 13:27
PROVIDERS: PCP Family Medicine; Visit Provider Nurse Practitioner Family
DX: R09.89 Other specified symptoms and signs involving the circulatory and respiratory systems (principal)
CPT/HCPCS: 84443; 85025

== ENCOUNTER 2024-10-09 00:58 | Outpatient (CLI) | payer MEDICARE, OTHER, SELFPAY ==
--- NOTE | 2024-10-09 | DI.NM_ITS ---
APPROVED REPORT Exam: Pharmacologic Patient Location: Out-Patient Room/Bed: Stress Nurse: Argelia Perez Ordering Provider:DARLIN KING, Contact Number: [phone] BMI: 24.20 Baseline Rhythm: Sinus Bradycardia, LBBB Indications: exertional chest pain Medical History Medical History: malignant neoplasm of prostate, systolic murmur, GERD, CAD, HLD, HTN, prediabetes, intestinal obstruction, vascular disorder, venous thrombosis Cardiac Medications: aspirin, atorvastatin, chlorthalidone, finasteride, lisinopril, lupron, metoprolol succinate, nitroglycerin, omeprazole, tamsulosin Allergies: viagra Cardiac Risk Factors: HTN, prediabetes, HLD, PVD, CVD Previous Cardiac Procedures: stent (1995) Pretest Chest Pain Characteristics: No chest pain Exercise History: Physically active Physical Disabilities: n/a Lung Sounds: Clear to auscultation Heart Sounds: Murmur Stress Test Details Test: Pharmacologic stress was paired with low level exercise. Reason for pharmacologic stress test: LBBB. Nuclear Acquisition: Rest Tc-99m/Stress Tc-99m 1 day Rest Isotope: Tc-99m Sestamibi. Dose: 10.0 Date: 10/09/2024 Injection Time: 1100 Stress Isotope: Tc-99m Sestamibi. Dose: 30.0 Date: 10/09/2024 Injection Time: 30.0 HR Resting HR Supine: 47 bpm Max Heart Rate (APMHR): 138.217669 bpm Resting HR Standin bpm Target HR (85% APMHR): 117.206576 bpm Max HR Achieved: 90 bpm % of APMHR: 65.22 Recovery HR: 61 bpm BP Resting BP Supine: 184/62 mmHg Resting BP Standin/66 mmHg Max BP: 184/62 mmHg Recovery BP: 174/64 mmHg ECG Resting ECG: Sinus Bradycardia, LBBB Ectopy: none Stress ECG: Sinus Rhythm, LBBB ST Change: Nondiagnostic low heart rate Arrhythmia: None Recovery ECG: Sinus Rhythm, LBBB Recovery ST Change: Nondiagnostic low heart rate Recovery Arrhythmia: None Clinical Angina Score: None Rate Pressure Product: 30525 Stress ECG Conclusion 1. Resting electrocardiogram showed a left bundle branch block 2. Patient underwent testing using pharmacologic stress with regadenoson 3. Peak heart rate achieved was 65% of maximal predicted for age 4. The electrocardiographic portion of the test was nondiagnostic 5. See MPI report Stress Test Summary STAGE HR BP SpO2 Symptoms NOTES Supine 47 184/62 96 Standing 50 172/66 1 min post Lexiscan injection 86 160/58 3 min post Lexiscan injection 82 150/66 97 6 min post Lexiscan injection 61 174/64 97 Walking marya performed due to LBBB and beta kevon. Pt experienced no side effects throughout test. Pt left ambulatory in no acute distress. MPI Conclusion Myocardial perfusion is normal. There is no ischemia or evidence of prior infarction Ejection fraction is normal with normal wall motion
[2024-10-09] MEDS: Regadenoson 0.4 MG/5 ML SYR IVP (12:55)
== END 2024-10-09 01:18 ==
PROVIDERS: PCP Family Medicine; Visit Provider Nurse Practitioner Family
DX: R07.9 Chest pain, unspecified (principal)
CPT/HCPCS: 78452; 93016; 93018; 93017; J2785

== ENCOUNTER 2024-10-10 00:01 | Outpatient (CLI) | payer MEDICARE, OTHER, SELFPAY ==
--- NOTE | 2024-10-10 07:30 | DI.US_ITS ---
APPROVED REPORT EXAM: Comprehensive 2D, Doppler, and color-flow Echocardiogram Patient Location: Out-Patient Food Checker: Kaiden Roy RDCS (AE) Indications: Cardiac murmur Other Information Study Quality: Adequate Conclusion Normal left ventricular wall thickness and chamber size. Ejection fraction is 55 to 60%. Wall motion is normal Normal right ventricular size and function Mildly dilated left atrium. Normal right atrial size Aortic valve is calcified. There is mild aortic stenosis. Highest mean gradient is 12 mmHg. Calculated aortic valve area is 1.6 cm??. There is mild aortic regurgitation Mild mitral regurgitation Wall motion Left Ventricle The left ventricle is normal size. The left ventricular systolic function is normal. The left ventricular ejection fraction is within the normal range. There is normal left ventricular wall thickness. There is normal LV segmental wall motion. There is no ventricular septal defect visualized. LVEF is 55-60%. Right Ventricle The right ventricle is normal size. The right ventricular systolic function is normal. Atria Left atrium is mildly dilated. Right atrium is mildly dilated. The interatrial septum is intact with no evidence for an atrial septal defect. Aortic Valve Aortic valve is calcified. Mild aortic stenosis. Peak aortic valve gradient is 23.36 mmHg. Highest mean aortic valve gradient is 11.77 mmHg. Calculated ANGELY by the continuity equation is 1.6 cm2. Mild aortic regurgitation. Mitral Valve The mitral valve is normal in structure. No evidence of mitral valve stenosis. Mild mitral regurgitation. Tricuspid Valve The tricuspid valve is normal in structure. There is no tricuspid valve stenosis. Trace tricuspid regurgitation. Pulmonic Valve The pulmonary valve is normal in structure. There is no pulmonic valvular stenosis. Trace pulmonic regurgitation. Great Vessels The aortic root is normal in size. The ascending aorta is normal in size. Aortic arch is normal in caliber. IVC is normal in size and collapses >50% with inspiration. Pericardium There is no pericardial effusion. 2D Dimensions IVSD d PLAX 0.99 cm M: 0.6-1.2 Ao Root d 2.85 cm M: 3.1 - 3.7 LVPW d PLAX 0.99 cm M: 0.6 - 1.2 Ao Asc Diam d 3.25 cm M: 2.6 - 3.4 LVID d PLAX 5.11 cm M: 4.2 - 5.8 LVDs 3.57 cm M: 2.5 - 4.0 LV EF Teichholz 57.0 % FS 30.09 % LV EDV (Teich) 124.5 mL LV ESV (Teich) 53.5 mL Stroke Vol Index (Teich) 39.90 M-Mode TAPSE 2.76 cm (M/F) >1.7 Auto EF LV EDV A4C 200.7 mL LV EDV A2C 164.0 mL LV EDV BP 184.0 mL LV ESV A4C 90.2 mL LV ESV A2C 70.2 mL LV ESV BP 79.6 mL LVEF(%) A4C 55.1 % LVEF(%) A2C 57.2 % LVEF(%) BP 56.7 % LV SV A4C 110.5 ml LV SV A2C 93.8 ml LV SV BP 104.4 ml LV CO A4C 4.6 L/min LV CO A2C 4.0 L/min LV CO BP 4.3 L/min HR A4C 41.32 BPM HR A2C 43.01 BPM LV EDV Index (BP) LA Volume LA Length A4C 5.2 cm LA Length A2C 4.4 cm LA Area A4C s 16.37 cm2 LA Area A2C s 14.86 cm2 LA Vol A4C A-L 43.86 mL LA Vol A2C A-L 42.19 mL LA Vol Biplane A-L 46.5 mL LA Vol/BSA A4C A-L LA Vol/BSA A2C A-L LA Vol/BSA BP A-L 26.1 mL/m2 LA Vol A4C MOD 41.5 mL LA Vol A2C MOD 40.5 mL LA Vol BP MOD 43.9 mL RA Volume RA Area A4C 10.3 cm2 RA ESV A4C (A-L) 24.3mL RA Vol/BSA A4C A-L RA Length A4C 3.7 cm RA ESV A4C (MOD) 24.5mL LV Diastology MV E' medial 0.038 (>0.07 m/s) MV E Vmax 0.66 (0.4-1.3 m/s) MV E/E' MED 17.46 (<14) MV A Vmax 0.80 (0.4-1.3 m/s) MV E' lateral 0.065 (>0.1 m/s) E/A Ratio 0.8 MV E/E' LAT 10.18 (<14) MV E' Average 0.051 m/s MV E/E'(average) 12.86 Aortic Valve AoV Vmax 2.42 m/s LVOT Vmax 1.17 m/s AoV Peak Grad 43.6 mmHg LVOT Peak Grad 5.4 mmHg AoV Area (Vmax) 1.55 cm2 LVOT VTI 0.325 m AoV VTI 0.658 m LVOT Mean Grad 2.7 mmHg AoV Mean Stanislav. 1.59 m/s LVOT SV 104.43 mL AoV Mean Grad 11.8 mmHg LVOT Diam s 2.00 cm AoV Area (VTI) 1.59 cm2 AV Regurg Peak Gr. 23.36 mmHg Velocity Ratio 0.48 AR Decel [place] 1.7m/sec2 AR DT 2401 msec AR PHT 696 msec AR Vmax 3.99 m/s Mitral Valve MV DT 204 (160-240 msec) Pulmonary Valve PV Vmax 1.06 (0.5-1.5 m/s) RVOT Vmax 0.70 m/s PV Peak Grad 4.5 mmHg RVOT Peak Gr. 2.0 mmHg PV Mean Stanislav 0.73 m/s RVOT VTI 0.181 m PV Mean Grad 2.5 mmHg RVOT Mean Gr. 0.9 mmHg
== END 2024-10-10 00:21 ==
LOC: DI 00:01
PROVIDERS: PCP Family Medicine; Visit Provider Internal Medicine Cardiovascular Disease
DX: R01.1 Cardiac murmur, unspecified (principal); I35.0 Nonrheumatic aortic (valve) stenosis
CPT/HCPCS: 93306

== ENCOUNTER 2024-10-15 12:11 | Outpatient (REF) | payer MEDICARE, OTHER, SELFPAY ==
[2024-10-15 16:08] LABS: Iron 97 ug/dL (65-175); Total Iron Binding Capacity 282 ug/dL (250-450); Transferrin Sat 34 % (20-55)
[2024-10-15 16:44] LABS: Folate 4.9 ng/mL (8.6-20.0); Vitamin B12 328 pg/mL (193-986)
[2024-10-16 01:59] LABS: Ferritin 414 ng/mL (26-388)
[2024-10-17 09:04] LABS: Transferrin 202 mg/dL (201-352)
== END 2024-10-15 12:12 | disposition home or self-care (01) ==
LOC: NCHCN 12:11
PROVIDERS: PCP Family Medicine; Visit Provider Nurse Practitioner Family
DX: D64.9 Anemia, unspecified (principal)
CPT/HCPCS: 82607; 82728; 82746; 83540; 83550; 84466

== ENCOUNTER 2024-10-27 08:08 | Outpatient (CLI) | payer MEDICARE, OTHER, SELFPAY ==
--- NOTE | 2024-10-27 08:00 | RT.EKG_ITS ---
APPROVED REPORT Exam: Resting ECG Reason for Exam: CAD Patient Location: O HR:47 bpm ECG Measurements Heart Rate 47 AXIS NV 216 P 14 QRSd 172 QRS -30 QT 498 T 74 QTc 441 Conclusion Sinus bradycardia...rate< 50 Left bundle branch block...QRSd>120, broad/notched R
== END 2024-10-27 08:09 | disposition home or self-care (01) ==
LOC: DI.CARD 08:09
PROVIDERS: PCP Nurse Practitioner Family; Visit Provider Registered Nurse
DX: I25.10 Atherosclerotic heart disease of native coronary artery without angina pectoris (principal); Z95.5 Presence of coronary angioplasty implant and graft; I44.7 Left bundle-branch block, unspecified; R00.1 Bradycardia, unspecified
CPT/HCPCS: 93010

== ENCOUNTER → 2024-10-27 08:09 | Outpatient (BNVA) | payer MEDICARE, OTHER, SELFPAY | PROVIDERS: PCP Nurse Practitioner Family; Referring Provider Family Medicine; Visit Provider Registered Nurse | DX: I25.10 Atherosclerotic heart disease of native coronary artery without angina pectoris (principal); E11.59 Type 2 diabetes mellitus with other circulatory complications; Z95.5 Presence of coronary angioplasty implant and graft; I10 Essential (primary) hypertension | CPT/HCPCS: 99204; 93005 ==

== ENCOUNTER 2024-12-16 08:33 | Outpatient (CLI) | payer MEDICARE, OTHER, SELFPAY | END 2024-12-16 08:34 | disposition home or self-care (01) | LOC: LBO 08:34 | PROVIDERS: PCP Nurse Practitioner Family; Visit Provider Radiology Radiation Oncology | DX: C61 Malignant neoplasm of prostate (principal) | CPT/HCPCS: 36415; 84153; 84403 ==

== ENCOUNTER → 2025-01-26 10:29 | Outpatient (BNVA) | payer MEDICARE, OTHER, SELFPAY | PROVIDERS: PCP Nurse Practitioner Family; Referring Provider Nurse Practitioner Family; Visit Provider Registered Nurse | DX: I25.10 Atherosclerotic heart disease of native coronary artery without angina pectoris (principal); R01.1 Cardiac murmur, unspecified; E11.59 Type 2 diabetes mellitus with other circulatory complications; I10 Essential (primary) hypertension; Z79.02 Long term (current) use of antithrombotics/antiplatelets; Z79.811 Long term (current) use of aromatase inhibitors | CPT/HCPCS: 99214 ==

== ENCOUNTER 2025-01-26 11:14 | Outpatient (CLI) | payer MEDICARE, OTHER, SELFPAY ==
[2025-01-26 11:33] LABS: Abs Immature Grans 0.02 10^3/uL (0.0-0.06); HCT 33.5 % (40.0-50.0); HGB 11.7 g/dL (13.5-17.5); Immature Grans % 0.5 %; MCH 31.8 pg (27.0-33.0); MCHC 34.9 % (32.0-36.0); MCV 91 fL (80-95); MPV 8.8 fL (8.0-11.0); Platelet Count 197 10^3/uL (130-400); RBC 3.68 10^6/uL (4.36-5.78); RDW 12.4 % (11.8-14.1); RDW-SD 41.3 fL; WBC 3.85 10^3/uL (4.4-10.8)
[2025-01-26 11:44] LABS: Anion Gap 7.0 mmol/L (3-11); BUN 22 mg/dL (7-18); CO2 29.0 mmol/L (21.0-32.0); Calcium 8.5 mg/dL (8.5-10.1); Chloride 93 mmol/L (98-107); Glucose 114 mg/dL (74-106); Potassium 4.0 mmol/L (3.5-5.1); Sodium 129 mmol/L (136-145)
[2025-01-26 11:49] LABS: INR 1.1 (0.9-1.1); PTT Activated 24.5 sec (20.6-30.2); Prothrombin Time 10.6 sec (9.1-11.1)
== END 2025-01-26 11:15 | disposition home or self-care (01) ==
LOC: LBO 11:15
PROVIDERS: PCP Nurse Practitioner Family; Visit Provider Registered Nurse
DX: I25.10 Atherosclerotic heart disease of native coronary artery without angina pectoris (principal)
CPT/HCPCS: 36415; 80048; 99214; 85025; 85610; 85730

== ENCOUNTER → 2025-01-29 02:19 | Outpatient (CLI) | payer MEDICARE, OTHER, SELFPAY ==
--- NOTE | 2025-01-29 11:06 | DI.DEXA_ITS ---
Exam(s) XR DEXA BONE DENSITY W/WO MARIA M EXAM: XR DEXA BONE DENSITY W/WO MARIA M CLINICAL HISTORY: PROSTATE CA C61 MEAL PACKER USE SYSTEMIC STEROIDS Z79.52 ON ADT TECHNIQUE: [employer] Horizon C densitometer analysis of left hip, lumbar spine and left forearm. Lateral survey image of the thoracic and lumbar spine. COMPARISON: No exams were available for comparison FINDINGS: Lateral view of the thoracic and lumbar spine shows a question of mild anterior wedging midthoracic vertebral bodies. No significant degenerative changes as well as scoliosis are present in the lumbar spine which could elevate the bone mineral density measurements. Bone mineral density measurements of the lumbar spine correspond to a total T- score of 3.4, in the normal range Bone mineral density measurements of the left hip correspond to a total T-score of 0.2. The femoral neck T-score is -1.3, in the mildly osteopenic range. Theleft forearm bone mineral density measurements correspond to a T-score of the distal 3rd of -0.5, in the normal range. IMPRESSION: Normal bone density of the spine and forearm. Mild osteopenia of the hip.
== END ==
LOC: DI 02:19
PROVIDERS: PCP Nurse Practitioner Family; Visit Provider Radiology Radiation Oncology
DX: C61 Malignant neoplasm of prostate (principal); M85.89 Other specified disorders of bone density and structure, multiple sites; Z79.52 Long term (current) use of systemic steroids
CPT/HCPCS: 77080

== ENCOUNTER 2025-03-09 01:41 | Outpatient (CLI) | payer MEDICARE, OTHER, SELFPAY | END 2025-03-09 01:42 | disposition home or self-care (01) | LOC: LBO 01:41 | PROVIDERS: PCP Nurse Practitioner Family; Visit Provider Physician Assistant | DX: C61 Malignant neoplasm of prostate (principal) | CPT/HCPCS: 36415; 84153; 84403 ==